=== PATIENT | female | born 1940 | race Caucasian/White ===

== ENCOUNTER 2018-02-06 09:00 | Outpatient (RCR) ==
--- NOTE | 2018-01-23 13:12 | RS.OPPTEV2 ---
Date of Note: 01/22/18 Visit #: 1 Date of Evaluation: 01/22/18 Payer Source: MEDICARE Surgery Performed?: No Treatment Diagnosis: pain in R shld History of Condition/Mechanism of Injury:: pt with no definitive injury. pt states pain began approx 1 month ago. Prior Level of Function.....Patient was independent with: ADL's, Self Care, Work /Vocation, Caregiving, Ambulation/Mobility, Community Integration/Access Functional Limitations: Sleep, Self Care, ADL's, Reaching, Pushing, Pulling, Lifting, Carrying Current Subjective/complaints:: pt states her R shld has been hurting for quite some time, however has been worse for approx 1 month. pt reports she has been having increased difficulty with dock hand. Treatment Side (optional): Right *Precautions: allergic to latex Medical History Medical History: Hypertension, COPD, Arthritis, Emphysema Medical History Comments:: afib, restless leg Surgical History: Cervical Spine, Hysterectomy Surgical History Comments:: cardioversion Smoking Status: Current every day smoker Hx Home Medications: norco, lisinopril, atavan, mirapex Patient's Goals: decrease R shld pain Pain Assessment - Pain Description Pain Location: R shld Pain Description: Sharp, Aching Current Pain Intensity: 5 Worst Pain Intensity: 9 Functional Outcome Measure UE Functional Index: 33 (59%) - G Codes & Severity Modifier G Codes & Modifier: carrying, moving, handling current CK. carrying, moving, handling goal CI Source of G Code score: UE functional index Observation - Observation Inspection: pt with significant upper trap tightness B R worse than L Posture: Forward Head, Rounded Shoulders, Increased Thoracic Kyphosis, Decreased Lumbar Lordosis Handedness: Right Gait - Gait Pattern General Gait Pattern Observation: No Deviations/Normal General Range of Motion: BLE WFL's. LUE WFL's Muscle Strength: BLE 5/5. LUE 4+ to 5/5 Shoulder ROM: Left WFL's Shoulder Muscle Strength: Left WFL's - Right Shoulder ROM Right Shoulder Flexion: 115 (AROM) Right Shoulder Abduction: 100 (AROM) Right Shoulder External Rotation: 35 (AROM) Right Shoulder ROM Limitations: Soft Tissue Tightness, Muscle Weakness, Pain - Right Shoulder Strength Right Shoulder Flexion: 3- Fair- Right Shoulder Extension: 3 Fair Right Shoulder Abduction: 3- Fair- Right Shoulder Adduction: 3 Fair Right Shoulder External Rotation: 3- Fair- Right Shoulder Internal Rotation: 3 Fair - Special Tests Shoulder Empty Can (Supraspinatus) Test: Negative Right Shoulder Mckay-Alexander Impingement Test: Negative Right Palpation Palpation Findings: Tenderness, Muscle Guarding Comments:: pt with tenderness and guarding in area of biceps tendon as well as prox spine of scapula Sensation - Sensation Right Upper Extremity: Intact/Normal Left Upper Extremity: Intact/Normal Right Lower Extremity: Intact/Normal Left Lower Extremity: Intact/Normal Balance - Sitting Balance Static Sitting Balance: Normal Dynamic Sitting Balance: Normal - Standing Balance Static Standing Balance: Normal Dynamic Standing Balance: Normal - Treatment Modality: Ultrasound Parameters/Method Applied: 1.5w/cm2 x 7 mins Treatment Area: R shld Patient Position: Sitting Interventions - Exercise/Activities/Manual Therapy Exercises/Activities: pt performed pendulum ex as well as isometric R shld flex , abd/add, ext and scapular retraction Manual Therapy: n/a HOME EXERCISE PROGRAM: pt given written HEP including pendulum ex, isometric R shld flex, ext, abd, add, scapular retraction, shld shrugs, upper trap stretch - Charges Timed Code Treatment Minutes: 52 Total Treatment Time: 60 Procedures billed for this date of service:: Keek EVALUATION COMPLEXITY LEVEL EVALUATION COMPLEXITY LEVEL: HISTORY: Medium (copd, HTN, age, ), EXAM OF BODY SYSTEMS: Medium (ROM, strength, pain, posture), CLINICAL PRESENTATION: Medium ( evolving), CLINICAL DECISION MAKING: Medium Assessment Assessment: pt presents with decreased strength, ROM with pain R shld. pt with tenderness over biceps tendon, increased pain with ER , abd and flex. pt with some pain relief with pendulum ex. Patient Education: Home Exercise Program, Education of Plan of Care Rehab Potential: Good Short Term Goals Goal #1: pt rate pain < 5 with activity R shld Goal to be met by: 01/30/18 Goal #2: pt with improved R shld ROM flex 125 abd 115 ER 45 Goal to be met by: 01/30/18 Goal #3: Verbalize understanding/compliance of need to decrease heavy activity R shl Goal to be met by: 01/30/18 Goal #4: . Senior Care Goals Goal #1: pt with improved posture, decreased upper trap tightness Goal to be met by: 02/06/18 Goal #2: pt rate pain <3/10 with activity R shld Goal to be met by: 02/06/18 (100%) Goal #3: pt with improved R shld ROM WFL's Goal to be met by: 02/06/18 (30%) Goal #4: Improved strength R shld 4/5 Goal to be met by: 02/06/18 Plan - Treatment to be Provided Procedures: Therapeutic Exercises, Therapeutic Activity, Manual Therapy, Patient Education Modalities: Electrical Stimulation, Ultrasound/Phonophoresis, Cryotherapy, Hot Packs - Treatment Plan Frequency: 2 X week Duration: 3 weeks ORDER # VISITS AND/OR THROUGH DATE: 02/06/18 - Treatment Code (1) Joint stiffness Code(s): M25.60 - STIFFNESS OF UNSPECIFIED JOINT, NOT ELSEWHERE CLASSIFIED (2) Muscle weakness Code(s): M62.81 - MUSCLE WEAKNESS (GENERALIZED) (3) Pain in joint, shoulder region Code(s): M25.519 - PAIN IN UNSPECIFIED SHOULDER Qualifiers: Laterality: right Qualified Code(s): M25.511 - Pain in right shoulder
--- NOTE | 2018-01-23 15:12 | RS.OPPTDN ---
Subjective Date of Note: 01/23/18 Visit #: 2 Date of Evaluation: 01/22/18 Payer Source: MEDICARE Treatment Diagnosis: pain in R shld Current Subjective/complaints:: Patient says she doesn't have much pain to the R shoulder except when she is idle. Reports she performs many outdoor chores and lifts heavy objects, but does not seem to hurt then. *Precautions: allergic to latex - Treatment Modality: Ultrasound Parameters/Method Applied: continuous @ 1.5 w/cm2 x 10 mins along the R upper arm Patient Position: Sitting - Heat/Cryotherapy Treatment: Hot Pack (15 mins to the R shoulder and along the lateral and upper arm in sitting) Interventions - Exercise/Activities/Manual Therapy Exercises/Activities: Patient receives PROM all dir to the R shoulder. Manual isometrics 2x5 for shoulder IR/ER/ABD/ FLEX/EXT, 1# wand for bilateral shoulder flexion at EOB and scap retraction. Patient encouraged to perform HEP and avoid heavy lifting and yard chores while receiving therapy. Total minutes of Exercise: 22 Manual Therapy: n/a HOME EXERCISE PROGRAM: pt given written HEP including pendulum ex, isometric R shld flex, ext, abd, add, scapular retraction, shld shrugs, upper trap stretch - Charges Timed Code Treatment Minutes: 32 Total Treatment Time: 47 Procedures billed for this date of service:: hp, u/s, ex Assessment: Patient presents with low to no pain to the R shoulder, but does increase mildly with ROM. Patient asks to perform ROM quickly because she does not like slow motion due to her hyperactivity. Patient admits being manic currently and is difficult for her to sit and relax for treatment and avoid home chores. Patient Education: Home Exercise Program, Activity Modification, Education of Plan of Care Short Term Goals Goal #1: pt rate pain < 5 with activity R shld Goal to be met by: 01/30/18 Goal #2: pt with improved R shld ROM flex 125 abd 115 ER 45 Goal to be met by: 01/30/18 Goal #3: Verbalize understanding/compliance of need to decrease heavy activity R shl Goal to be met by: 01/30/18 Goal #4: . 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
--- NOTE | 2018-01-26 14:29 | RS.OPPTDN ---
Subjective Date of Note: 01/26/18 Visit #: 3 Date of Evaluation: 01/22/18 Payer Source: MEDICARE Treatment Diagnosis: pain in R shld Current Subjective/complaints:: Patient says she has been up all night nearly. She says she cannot tell a difference in her shoulder pain. Reports it "pops and cracks" all the time. She says she has put a hold on performing heavier tasks at home, but performs normal house chores several times per day. *Precautions: allergic to latex - Treatment Modality: Ultrasound Parameters/Method Applied: continuous @ 1.5 w/cm2 x 12 mins to the R UT and along the R mid deltoid Patient Position: Sitting - Heat/Cryotherapy Treatment: Hot Pack (R shoulder in sitting x 15 mins) Interventions - Exercise/Activities/Manual Therapy Exercises/Activities: Patient receives PROM all dir to the R shoulder. Manual isometrics 2x5 for shoulder IR/ER/ABD/ FLEX/EXT, 4# wand for bilateral shoulder flexion and chest press in supine and EOB. Shoulder shrugs and scap retraction. Tricep curls using ball over her head with 2# arm weight x 10. 3# arm weight for R while on UBE x 2.5 mins forward and 2.5 mins retro. Total minutes of Exercise: 25 Manual Therapy: n/a HOME EXERCISE PROGRAM: pt given written HEP including pendulum ex, isometric R shld flex, ext, abd, add, scapular retraction, shld shrugs, upper trap stretch - Charges Timed Code Treatment Minutes: 37 Total Treatment Time: 52 Procedures billed for this date of service:: hp, u/s, ex2 Assessment: Patient continues to have mod to severe R shoulder pain, limited sleep, but has ROM passively to WNL and actively WFL. Intermittent popping present to both shoulders primarily with overhead flexion. Good resistance with all isometrics today. Patient requests increased weight applied to all exercises due to ease. Patient Education: Body/Joint mechanics, Home Exercise Program, Home Safety Patient demonstrates compliance with HEP?: Yes Short Term Goals Goal #1: pt rate pain < 5 with activity R shld Goal to be met by: 01/30/18 Goal #2: pt with improved R shld ROM flex 125 abd 115 ER 45 Goal to be met by: 01/30/18 Goal #3: Verbalize understanding/compliance of need to decrease heavy activity R shl Goal to be met by: 01/30/18 Goal #4: . Long-Term Goals Goal #1: pt with improved posture, decreased upper trap tightness Goal to be met by: 02/06/18 Goal #2: pt rate pain <3/10 with activity R shld Goal to be met by: 02/06/18 (100%) Goal #3: pt with improved R shld ROM WFL's Goal to be met by: 02/06/18 (30%) Goal #4: Improved strength R shld 4/5 Goal to be met by: 02/06/18 Plan PLAN OF CARE EXPIRES ON:: 02/06/18 ORDER # VISITS AND/OR THROUGH DATE: 02/06/18 PLAN: Patient to continue for modalties and therex to the R UE.
--- NOTE | 2018-01-28 09:38 | RS.CSNOTE ---
PT Case Note Date of Note: 01/28/18 Title of document: Case Note Note: Patient c/o hurting everywhere today. Reports her skin even hurts. Says she almost cancelled her session. As patient sat for ~15 mins on heat for her R shoulder, she began to get very emotional and said she needed to leave. Reports anxiety and increased pain. Assisted patient to her car.
--- NOTE | 2018-01-30 16:33 | RS.OPPTDN ---
Subjective Date of Note: 01/30/18 Visit #: 4 Date of Evaluation: 01/22/18 Payer Source: MEDICARE Treatment Diagnosis: pain in R shld Current Subjective/complaints:: Patient says she feels better today than last session, but still has a lot of pain "everywhere." She says she used her TENS unit and took a [place]. She admits her shoulder feels better when she is performing heavier activity than to rest the arm or body. *Precautions: allergic to latex Pain Assessment - Pain Description Pain Location: "all over" - Treatment Modality: Ultrasound Parameters/Method Applied: continuous @ 1.5 w/cm2 x 10 mins to the R shoulder Patient Position: Sitting - Heat/Cryotherapy Comments:: Patient requests no heat because the weight of the hot pack elevates pain Interventions - Exercise/Activities/Manual Therapy Exercises/Activities: Patient receives PROM all dir to the R shoulder. Manual isometrics 2x5 for shoulder IR/ER/ABD/ FLEX/EXT, 3# wand for bilateral shoulder flexion and chest press in supine and EOB. Shoulder shrugs and scap retraction. Shoulder pulleys for flexion x 3 mins. Total minutes of Exercise: 22 Manual Therapy: n/a HOME EXERCISE PROGRAM: pt given written HEP including pendulum ex, isometric R shld flex, ext, abd, add, scapular retraction, shld shrugs, upper trap stretch - Charges Timed Code Treatment Minutes: 32 Total Treatment Time: 32 Procedures billed for this date of service:: u/s, ex Assessment: Patient continues with elevated pain generally throughout her body she relates to fibromyalgia. She describes pain is present more with food and beverage lead activity and HEP than heavier tasks that she had been doing prior to PT. She demo PROM just a few degrees from normal range all dir and shyann AROM is WFL, but became too anxious to continue on for measurements. No popping is felt within the joint during ROM. Pulleys provided relief of pain and she is able to do so WNL of flexion and able to hold for static stretches. Patient Education: Home Exercise Program, Home Safety, Education of Plan of Care Patient demonstrates compliance with HEP?: Yes Short Term Goals Goal #1: pt rate pain < 5 with activity R shld Goal to be met by: 01/30/18 Progress towards Goal:: No Change Goal #2: pt with improved R shld ROM flex 125 abd 115 ER 45 Goal to be met by: 01/30/18 Progress towards Goal:: Progressing Goal #3: Verbalize understanding/compliance of need to decrease heavy activity R shl Goal to be met by: 01/30/18 Progress towards Goal:: Progressing Goal #4: . Senior Care Goals Goal #1: pt with improved posture, decreased upper trap tightness Goal to be met by: 02/06/18 Goal #2: pt rate pain <3/10 with activity R shld Goal to be met by: 02/06/18 (100%) Goal #3: pt with improved R shld ROM WFL's Goal to be met by: 02/06/18 (30%) Goal #4: Improved strength R shld 4/5 Goal to be met by: 02/06/18 Plan PLAN OF CARE EXPIRES ON:: 02/06/18 ORDER # VISITS AND/OR THROUGH DATE: 02/06/18 PLAN: BIW x 1 more week per order to improve AROM
--- NOTE | 2018-02-03 14:28 | RS.OPPTDN ---
Subjective Date of Note: 02/03/18 Visit #: 5 Date of Evaluation: 01/22/18 Payer Source: MEDICARE Treatment Diagnosis: pain in R shld Current Subjective/complaints:: Patient says her R shoulder pain is only with turning her steering wheel or reaching over her body. Reports her whole body aches and her skin hurts, but the R shoulder does not bother her performing reaching activities or other activities in our department. She indicates her pain had been elevated last night that she only had about an hour sleep so she got up and cleaned her house. States she will see Dr. Aileen Quan February 06. She has to make an appt with Dr. Guerrier after her therapy is complete. *Precautions: allergic to latex Pain Assessment - Pain Description Pain Location: whole body/skin - Treatment Modality: Ultrasound Parameters/Method Applied: continuous @ 1.5 w/cm2 x 10 mins to the R shoulder and upper arm Patient Position: Sitting Interventions - Exercise/Activities/Manual Therapy Exercises/Activities: EX performed in sitting: Patient receives PROM all dir to the R shoulder. Manual isometrics 2x5 for shoulder IR/ER/ABD/ FLEX/EXT, 4# wand for bilateral shoulder flexion and chest press in supine and EOB. Shoulder shrugs and scap retraction. Green tband for scap retraction, 2# dumbell for biceps/triceps curls, wrist flex/ext, punches x 12. 1# shoulder flexion, horizontal add to neutral, shoulder abd x 12. Green tband for bilateral shoulder extension x 12. Shoulder pulleys for flexion x 3 mins. Total minutes of Exercise: 26 Manual Therapy: n/a HOME EXERCISE PROGRAM: pt given written HEP including pendulum ex, isometric R shld flex, ext, abd, add, scapular retraction, shld shrugs, upper trap stretch - Charges Timed Code Treatment Minutes: 26 Total Treatment Time: 36 Procedures billed for this date of service:: u/s, ex2 Assessment: Patient continues with hypersensitivity generally throughout the UE/ LE's with pain that is systemic. However, she admits when this pain is elevated , she is unable to sleep and she gains relief with performing household tasks. Pain is not reproduced with any therex today except when patient actively performs horizontal adduction with resistance. Patient demo full Active motion all dir for the R shoulder and provides 5/5 resistance through each action. Patient Education: Body/Joint mechanics, Home Exercise Program, Activity Modification, Education of Plan of Care Patient demonstrates compliance with HEP?: Yes Short Term Goals Goal #1: pt rate pain < 5 with activity R shld Goal to be met by: 01/30/18 Progress towards Goal:: No Change Goal #2: pt with improved R shld ROM flex 125 abd 115 ER 45 Goal to be met by: 01/30/18 Progress towards Goal:: Met Goal #3: Verbalize understanding/compliance of need to decrease heavy activity R shl Goal to be met by: 01/30/18 Progress towards Goal:: Met Goal #4: . Penitentiary Goals Goal #1: pt with improved posture, decreased upper trap tightness Goal to be met by: 02/06/18 Progress towards goal: Progressing Goal #2: pt rate pain <3/10 with activity R shld Goal to be met by: 02/06/18 (100%) Progress towards goal: No Change Goal #3: pt with improved R shld ROM WFL's Goal to be met by: 02/06/18 Progress towards goal: Met Goal #4: Improved strength R shld 4/5 Goal to be met by: 02/06/18 Progress towards goal: Met Plan PLAN OF CARE EXPIRES ON:: 02/06/18 ORDER # VISITS AND/OR THROUGH DATE: 02/06/18 PLAN: Patient has 1 session remaining
--- NOTE | 2018-02-06 16:49 | RS.OPPTDN ---
Subjective Date of Note: 02/06/18 Visit #: 6 Date of Evaluation: 01/22/18 Payer Source: MEDICARE Treatment Diagnosis: pain in R shld Current Subjective/complaints:: Patient reports her pain is worse since her last session. She says she does not know if it is a particular exercise. Reports that she is shoveling gravel and painting her mailbox post, but still has trouble with reaching across her body and pain is running down the lateral portion of the R upper arm. She is using heat at home and just began Alannah from her Family MD. *Precautions: allergic to latex - Treatment Modality: Ultrasound Parameters/Method Applied: continuous @ 1.5 w/cm2 x 10 mins to the R shoulder Patient Position: Sitting Interventions - Exercise/Activities/Manual Therapy Exercises/Activities: Patient received more conservative exercise today related to patient's c/o increased pain. PROM for the R shoulder all dir. Manual isometrics all dir 2x5, pendulum with 1# dumbell, 2# wand for bilateral shoulder flexion in sitting x 10. Shoulder shrugs/scap adduction for postural awareness, green tband for postural pull backs x 10. Finished with pulleys x 12. Total minutes of Exercise: 25 Manual Therapy: n/a HOME EXERCISE PROGRAM: pt given written HEP including pendulum ex, isometric R shld flex, ext, abd, add, scapular retraction, shld shrugs, upper trap stretch - Charges Timed Code Treatment Minutes: 35 Total Treatment Time: 35 Procedures billed for this date of service:: u/s, ex2 Assessment: Patient presenting with increased R shoulder pain today since her previous appt. We gradually added progressive exercises, but with only a 1# dumbell and short ranges. Patient is performing much more strenuous work at home and maintains ROM actively to WFL and passively WNL today. She provides great resistance throughout all MMT to the R shoulder. 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 She is encouraged to contact her ortho letting him know she has finished and remains with elevated R shoulder pain despite treatment.
--- NOTE | 2018-02-16 16:04 | RS.OPPTDC ---
Date of Discharge: 02/06/18 Date of Evaluation: 01/22/18 Number of Visits: 6 Treatment Diagnosis: pain in R shld Current Level of Function: pt AROM WFL's. Flex R shld 165-170 with therapy wand/ pulleys. Strength for flex/ext, IR/ER 5/5. Current Complaints/Gains: pt reports that her R shld feels worse. pt states that her pain is often "all over" and is not improving with therapy. pt reports she can perform housework when her pain is not bad. Reports continues with decreased sleep but thinks it is due to anxiety. Pain Assessment - Pain Description Pain Location: R shld Current Pain Intensity: >5 Other Comments regarding Pain:: Pain is limiting her functional mobility. Functional Outcome Measure UE Functional Index: 33 (59%) - G Codes & Severity Modifier G Codes & Modifier: carrying, moving, handling objects dc CK. carrying, moving , handling goal CI Source of G Code score: UE functional scale Observation - Observation Posture: Forward Head, Rounded Shoulders Handedness: Right Gait - Gait Pattern General Gait Pattern Observation: No Deviations/Normal General Range of Motion: ROM R shld flex 165-170 Muscle Strength: R shld flex/ext, IR/ER 5/5 Interventions - Exercise/Activities/Manual Therapy Exercises/Activities: n/a Manual Therapy: n/a HOME EXERCISE PROGRAM: pt given written HEP including pendulum ex, isometric R shld flex, ext, abd, add, scapular retraction, shld shrugs, upper trap stretch - Charges Timed Code Treatment Minutes: n/a Total Treatment Time: n/a Procedures billed for this date of service:: n/a Assessment Assessment: pt has shown improvement in ROM, strength R shld. pt continues with pain and does not feel PT has improved pain. Patient Education: Home Exercise Program, Activity Modification, Education of Plan of Care Rehab Potential: Good Short Term Goals Goal #1: pt rate pain < 5 with activity R shld Goal to be met by: 01/30/18 Progress towards Goal:: No Change Goal #2: pt with improved R shld ROM flex 125 abd 115 ER 45 Goal to be met by: 01/30/18 Progress towards Goal:: Met Goal #3: Verbalize understanding/compliance of need to decrease heavy activity R shl Goal to be met by: 01/30/18 Progress towards Goal:: Met Goal #4: . [facility] Goals Goal #1: pt with improved posture, decreased upper trap tightness Goal to be met by: 02/06/18 Progress towards goal: Progressing Goal #2: pt rate pain <3/10 with activity R shld Goal to be met by: 02/06/18 Progress towards goal: No Change Goal #3: pt with improved R shld ROM WFL's Goal to be met by: 02/06/18 Progress towards goal: Met Goal #4: Improved strength R shld 4/5 Goal to be met by: 02/06/18 Progress towards goal: Met Plan Reason for Discharge:: referred back to MD due to worsening pain
== END 2018-02-14 ==
PROVIDERS: ATTEND Orthopaedic Surgery
DX: M25.511 Pain in right shoulder (principal)

== ENCOUNTER 2019-07-14 13:30 | Outpatient (RCR) | payer OTHER ==
--- NOTE | 2019-07-16 10:24 | RS.OTEVAL ---
Subjective Date of Note: 07/14/19 Visit #: 1 Number of visits approved by Insurance: 12 Date of Evaluation: 07/14/19 Payer Source: MEDICARE Date of Onset/Injury/Change in Status: 08/18/14 Surgery Performed?: Yes Date of Procedure: 06/04/19 Treatment Diagnosis: s/p right reverse total shoulder replacement Treatment Side (optional): Right *Precautions: allergic to latex Prior Level of Function.....Patient was independent with: ADL's, Self Care, Work /Vocation, Caregiving, Ambulation/Mobility, Community Integration/Access History of Condition/Mechanism of Injury: Pt reports she was receiving deep shots for pain relief in the right shoulder and then they stopped releaving the pain and the doctor said she was smoking so he was going to stop. Pt had s/p right reverse total shoulder replacement. Level of Function: Pt is driving to therapy. Pt is not wearing a sling at evaluation day which is 6 weaks status post surgery. Pt is able to complete Codman's exercises Independently. Pt completes all ADLS independently. Pt has difficulty donning her pants following toileting. Functional Limitations: Sleep, Self Care, ADL's, Reaching, Pulling, Lifting, Carrying Current Complaints/Gains: Pt has pain in the right shoulder and has a pillow in her axilla area. Pt's pain increases because she cannot sit still and heal that she has to be doing something all of the time. Medical History Medical History: Hypertension, COPD, Arthritis, Emphysema Medical History Comments:: afib, restless leg Surgical History: Cervical Spine, Hysterectomy Surgical History Comments:: cardioversion Smoking Status: Current every day smoker Diagnostic Testing/Imaging:: Patient reports she underwent x-ray yesterday and is unsure of the results. Hx Home Medications: norco, lisinopril, atavan, mirapex Patient's Goals: To be able to use her RUE as she used to without pain. Pain Assessment - Pain Description Pain Description: Sharp Pain Location: Right shoulder pain of 5/10. Pain Description: sharp, aches Current Pain Intensity: 5/10 Worst Pain Intensity: 10/10 Functional Outcome Measures UE Functional Index: 63 - G Codes & Severity Modifier G Codes: . Source of G Code score: . Observation - Observation Posture: Rounded Shoulders Handedness: Right Shoulder ROM: Left WFL's Shoulder Muscle Strength: Left WFL's - Right Shoulder ROM Right Shoulder Flexion: 118 Right Shoulder Extension: 0 Right Shoulder Abduction: 79 Right Shoulder Horizontal Abduction: 20 Right Shoulder Horizontal Adduction: 20 Right Shoulder Internal Rotation: 60 Right Shoulder External Rotation: 27 Right Shoulder ROM Limitations: Muscle Weakness, Pain - Right Shoulder Strength Right Shoulder Flexion: 3- Fair- Right Shoulder Extension: 3- Fair- Right Shoulder Abduction: 3- Fair- Right Shoulder Adduction: 3- Fair- Right Shoulder External Rotation: 3- Fair- Right Shoulder Internal Rotation: 3- Fair- Elbow ROM: Bilaterally WFL's Elbow Muscle Strength: Left WFL's - Right Elbow Strength Right Elbow Extension: 3- Fair- Right Elbow Flexion: 3 Fair Right Forearm Pronation: 3- Fair- Right Forearm Supination: 3- Fair- - Right Wrist/Hand ROM Right Wrist Extension: 60 Right Wrist Flexion: 55 Right Wrist Radial Deviation: 20 Right Wrist Ulnar Deviation: 15 Right Forearm Pronation: 90 Right Forearm Supination: 90 Right Wrist ROM Testing Limitations: Muscle Weakness Right Hand ROM: Full AROM - Right Wrist Strength Right Wrist Extension: 3 Fair Right Wrist Flexion: 3 Fair Right Wrist Radial Deviation: 3 Fair Right Wrist Ulnar Deviation: 3 Fair Right Forearm Pronation: 3 Fair Right Forearm Supination: 3 Fair - Linux Admin Engineer Strength Left Linux Admin Engineer Strength: 41 Right Linux Admin Engineer Strength: 35 Linux Admin Engineer Strength Left Hand Linux Admin Engineer Strength: 41 Right Hand Linux Admin Engineer Strength: 35 Dynamometer Testing Position: 2nd Position Palpation Palpation Findings: Tenderness Sensation Right Upper Extremity: Intact/Normal Left Upper Extremity: Intact/Normal Sensation Description: Within Normal Limits Modalities - Hot Pack/Cryotherapy Treatment: Cryotherapy Interventions - Exercise/Activities Exercise/Activities/Manual Therapy: Codman's exercise: circles both directions for 2-3 minutes each direction (Circles, North to south, east to west). HOME EXERCISE PROGRAM: Printed out Protocal for patient to complete Codman's exercises for 2-3 minutes each, Elbow flexion/extension x 10 reps, wrist/hand and finger motion, rhomboid and trapezius contraction, neck motion. deltoid isometrics with elbow at side, - Other Treatment/Services Treatment Details: Pt reports she does not always abide by the rules. So OT cut off the future home exercises because the patient reported she would do them all. OT to not let RUE shoulder extension occur. - Objective Findings Objective Findings:: WEakness, RUE limited AROM, increased pain. - Charges Timed Code Treatment Minutes: 45 Total Treatment Time: 60 Procedures billed for this date of service:: evaluation medium, EX EVALUATION COMPLEXITY LEVEL: HISTORY: Medium, EXAM OF BODY SYSTEMS: Medium, CLINICAL DECISION MAKING: Medium Assessment Assessment: Pt is emotional and has difficulty staying on tasks. Pt is very motivated and reports she is tired of hurting all of the time. Patient Education: Education of diagnosis, Body/Joint mechanics, Home Exercise Program, Home Safety, Education of Plan of Care Rehab Potential: Good Problems/Comments: Pt may do more than she is supposed to do according to her precautions of her surgery. Short Term Goals Goal #1: Pt to be (I) with her home exercise program and is compliant w/ precautions Goal to be met by: 07/30/19 Goal #2: Pt to increase RUE shoulder flexion to 140 degrees. Goal to be met by: 07/30/19 Goal #3: Pt to increase RUE strength to be 4/5. Goal to be met by: 07/30/19 Goal #4: Pt pain to decrease to 0-2/10. Goal to be met by: 07/30/19 Detention Goals Goal #1: Pt to increase strength of RUE to be 4+/5. Goal to be met by: 08/13/19 Goal #2: Pt to increase RUE AROM to be WFL. Goal to be met by: 08/13/19 Goal #3: Pt to be independent with pulling up her pants after toileting. Goal to be met by: 08/13/19 Goal #4: Pt to have 0-1/10 pain with full AROM of RUE shoulder. Goal to be met by: 08/13/19 Plan - Treatment to be provided Procedures: Therapeutic Exercises, Therapeutic Activity, Neuromuscular Rehab, Manual Therapy, Patient Education Modalities: Electrical Stimulation, Ultrasound/Phonophoresis, Class IV Laser, Cryotherapy, Hot Packs - Treatment Plan Frequency: 3 X week Duration: 6 weeks Dates of Body Presser Goals: 08/13/19 Expiration date of current Insurance Approval:: 08/13/19 - Treatment Code (1) Joint stiffness Code(s): M25.60 - STIFFNESS OF UNSPECIFIED JOINT, NOT ELSEWHERE CLASSIFIED Comments: M25.60 right shoulder joint stiffness. (2) Pain in joint, shoulder region Code(s): M25.519 - PAIN IN UNSPECIFIED SHOULDER Qualifiers: Laterality: right Qualified Code(s): M25.511 - Pain in right shoulder Comments: M25.511 Pain in right shoulder joint (3) Muscle weakness Code(s): M62.81 - MUSCLE WEAKNESS (GENERALIZED) Comments: M62.81 Muscle weakness
== END 2019-07-17 23:59 ==
PROVIDERS: ATTEND Orthopaedic Surgery
DX: Z47.89 Encounter for other orthopedic aftercare (principal)

== ENCOUNTER 2024-02-16 18:07 | Inpatient (IN) ==
[2024-02-16] MEDS: SOLU-MEDROL 125 MG IVP ONE (18:24)
[2024-02-16] MEDS: CARDIZEM INJ IVP STA (18:24)
[2024-02-16 18:29] LABS: BASOPHILS % (AUTO) 0.5 % (0.0-3.0); EOSINOPHILS % (AUTO) 0.5 % (0.0-7.0); HEMATOCRIT 35.8 % (37.0-47.0); HEMOGLOBIN 11.5 g/dl (12.0-16.0); IMMATURE GRANULOCYTE % (AUTO) 0.4 % (0.0-5.0); LYMPHOCYTES # (AUTO) 0.8 K/uL (0.60-3.4); LYMPHOCYTES % (AUTO) 10.8 (10.0-50.0); MEAN CORPUSCULAR HEMOGLOBIN 31.2 pg (27.0-31.0); MEAN CORPUSCULAR HGB CONC 32.1 (31.8-35.4); MONOCYTES # (AUTO) 0.8 K/uL (0.4-2.0); MONOCYTES % (AUTO) 10.3 (0-10); NEUTROPHILS # (AUTO) 5.8 K/ul (2.0-6.9); NEUTROPHILS % (AUTO) 77.5 % (42.2-75.2); PLATELET COUNT 331 10^3/uL (140-440); RDW COEFFICIENT OF VARIATION 14.6 % (11.6-14.8); RED BLOOD COUNT 3.69 10^6/ul (4.20-5.40); WHITE BLOOD COUNT 7.44 K/ul (4.6-10.2)
--- NOTE | 2024-02-16 18:29 | ED.PDOC ---
General ED Provider: Dr. 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 Patient was recently admitted to [facility] for suicidal attempt patient tried to cut her neck using a scalpel during that admission patient was found to have COPD exacerbation/pneumonia treated with antibiotics while admitted stayed at [facility] for 3 days then got transferred to psych unit stayed about 10 days and discharged home with psych medications. 2 days ago patient started feeling short of breath she is not on oxygen at home her condition Deteriorating so she was brought into the emergency room for evaluation. Upon presentation patient is in apparent respiratory distress saturating at 84 on room air heart rate in 150s to 160s. Patient reports low- grade fever yesterday. Time Seen by Provider: 02/16/24 18:13 Primary Care Provider: DEBBIE EDWARDS Nursing and Triage Documentation Reviewed and Agree: Yes What is Opioid Naive?: *Opioid Naive implies the patient is not already taking opioids or not chronically receiving opioids on a daily basis. *PRN dosing is not "usually" associated with tolerance. *Patients are at higher risk of over-sedation and aspiration. What is Opioid Tolerant?: *Opioid Tolerance implies less than the expected response to an opioid. *Acquired tolerance is defined by the patient taking 60mg of oral morphine daily (or equianalgesic dose of another opioid) for 1 week or more. *Often associated with chronic pain. *May take more than usual dose to achieve desired pain control. Review of Systems Review Of Systems Constitutional: Reports Fever and Weakness All Other Systems: Reviewed and Negative [facility] Medical History Cluster B personality disorder Social History Smoking and tobacco status: Current every day smoker Alcohol intake: never Substance use type: does not use Nora/mosque: YAZIDISM Special nora needs: No Agree to transfusion: Yes Adopted: No Caregiver/support person: No Household members: none Housing: house Marital status: W / Lives independently: Yes Number of children: 3 Number of grandchildren: 3 Highest education level completed: GED or equivalent Financial difficulty paying for basics: not very hard service: No Current occupational status: retired Pets and animals: Yes (2 cats) Leisure activites: art and other History of recent travel: No Sexually active: No Do you think of yourself as: straight/heterosexual Current gender identity: female Seatbelt use: always Drives intoxicated or rides with intoxicated starting gate driver: No Water heater temperature set < 120 degrees: Yes Working smoke detector in home: Yes Fire extinguisher in home: Yes Carbon monoxide detector in home: No Firearms in home: No Physical Exam Physical Exam Appearance: Reports Ill-appearing Ill-appearing: Mild Pain Distress: None Eyes: Reports JOSE ROBERTO and EOMI ENT: Reports Ears normal and Nose normal Neck: Supple Respiratory: Reports Breath sounds diminished (Bilateral lungs with mild wheezes) Cardiovascular: Reports No rub, No murmur, Irregular rhythm and Tachycardia GI/: Reports Soft, Nontender and No masses Musculoskeletal: Reports Normal strength and ROM intact Skin: Reports Warm and Normal color Neurological: Reports Sensation intact, Motor intact and Cranial nerves intact Psychiatric: Reports Other (Patient is faking seizures during physical exam) Interpretation EKG Interpretation EKG Interpretation By: ED Physician Time of EKG #1: 18:16 Rate: Tachy Rhythm: Other (A-fib with RVR) Ectopy: None [place]: NL Interpretation: Nonspecific ST changes no signs of acute ischemia Course Course 02/16/24 18:22 02/16/24 18:22 Orders, Labs, Meds: Lab Review 02/16/24 02/16/24 02/16/24 18:22 18:39 18:45 WBC 7.44 RBC 3.69 L Hgb 11.5 L Hct 35.8 L MCV 97.0 MCH 31.2 H MCHC 32.1 RDW Coeff of Magda 14.6 Plt Count 331 Immature Gran % (Auto) 0.4 Neut % (Auto) 77.5 H Lymph % (Auto) 10.8 [place] % (Auto) 10.3 H Eos % (Auto) 0.5 Baso % (Auto) 0.5 Neut # (Auto) 5.8 Lymph # (Auto) 0.8 [place] # (Auto) 0.8 Eos # (Auto) 0.0 Baso # (Auto) 0.0 Immature Gran # (Auto) 0.0 Puncture Site Rbrach Base Excess 1.6 O2 Saturation 96.6 ABG pH 7.52 H* ABG pCO2 30.0 L ABG pO2 77.0 L ABG HCO3 24.5 ABG Total CO2 25.4 H Hemoglobin 1.2 Oxyhemoglobin 94.1 L Carboxyhemoglobin 1.9 H Total Hemoglobin 11.5 L O2 Delivery Device Neb Oxygen Liter Flow 8.00 Sodium 136.2 Potassium 4.11 Chloride 107.4 H Carbon Dioxide 21.1 L Anion Gap 11.81 BUN 16.8 Creatinine 1.04 Estimated GFR (MDRD) 51.00 BUN/Creatinine Ratio 16.15 Glucose 129.7 H Calcium 9.36 Total Bilirubin 0.62 AST 41.4 H ALT 27.6 Alkaline Phosphatase 69.5 Troponin I < 0.012 NT-Pro-B Natriuret Pep 4260 H Total Protein 7.47 Albumin 3.95 Globulin 3.52 Albumin/Globulin Ratio 1.12 Adenovirus (PCR) Pending B. pertussis DNA (PCR) Not detected B.parapertussis DNA PCR Not detected C. pneumoniae DNA (PCR) Not detected Coronavirus OC43 (PCR) Not detected Coronavirus HKU1 (PCR) Not detected Coronavirus 229E (PCR) Not detected Coronavirus NL63 (PCR) Not detected Human Metapneumovir PCR Not detected Influenza B (RT-PCR) Not detected M. pneumoniae (PCR) Not detected Parainfluenza 1 (PCR) Not detected Parainfluenza 2 (PCR) Not detected Parainfluenza 3 (PCR) Not detected Parainfluenza 4 (PCR) Not detected RSV (PCR) Not detected Entero/Rhino (PCR) Not detected SARS-CoV-2 (PCR) Detected H Orders Category Date Time Status ABG DRAW REQUEST Stat CARDIO 02/16/24 18:15 Completed EKG-(ED ONLY) Stat CARDIO 02/16/24 18:13 Completed NEBULIZER TREATMENT Stat CARDIO 02/16/24 18:15 Completed CONTINUOUS PULSE OX (NURSING) PULSEOX CARE 02/16/24 18:13 Active IV ACCESS ONCE CARE 02/16/24 18:13 Active Monitor [ED REGISTERED VASCULAR TECHNOLOGIST (RVT) APPLIED] .ONCE EMERGENCY 02/16/24 18:13 Active ABG COOX Stat LAB 02/16/24 18:39 Completed CBC W/ AUTO DIFF Stat LAB 02/16/24 18:22 Completed CMP [COMPREHENSIVE METABOLIC PANEL] Stat LAB 02/16/24 18:22 Completed NT-PROBNP(ED) Stat LAB 02/16/24 18:22 Completed RESPIRATORY PANEL 2.1 (PCR) Stat LAB 02/16/24 18:45 Results TROPONIN I Stat LAB 02/16/24 18:22 Completed Diltiazem HCl [Cardizem Inj] Meds 02/16/24 18:20 Discontinued 15 mg IVP ONCE STA Diltiazem HCl [Cardizem] 125 mg Meds 02/16/24 19:30 Active 0.9 % Sodium Chloride [Sodium Chloride 100Ml] 100 ml IV TITRATION Ipratropium/Albuterol Neb [Duoneb] Meds 02/16/24 18:13 Discontinued 3 ml NEB ONCE STA Methylprednisolone Sod Succ/Pf [Solu-Medrol 125 mg] Meds 02/16/24 18:13 Discontinued 125 mg IVP ONCE ONE CXR [CHEST, 1V AP ONLY] Stat RADS 02/16/24 18:13 Completed Medications Generic Name Dose Route Start Last Admin Trade Name Freq PRN Reason Stop Dose Admin Diltiazem HCl 125 mg/ Sodium 125 mls @ 5 mls/hr 02/16/24 19:30 02/16/24 19:55 Chloride IV 5 mg/hr TITRATION JULIA 5 mls/hr Administration Protocol 5 MG/HR Discontinued Medications Generic Name Dose Route Start Last Admin Trade Name Freq PRN Reason Stop Dose Admin Albuterol/Ipratropium 3 ml 02/16/24 18:13 02/16/24 18:32 Ipratropium/Albuterol Vial.Neb NEB 02/16/24 18:14 3 ml ONCE STA Administration Diltiazem HCl 15 mg 02/16/24 18:20 02/16/24 18:24 Diltiazem Hcl Inj 25 Mg/5 Ml Vial IVP 02/16/24 18:21 15 mg ONCE STA Administration Methylprednisolone Sodium Succinate 125 mg 02/16/24 18:13 02/16/24 18:24 Methylprednisolone Sod Succ/Pf 125 Mg/2 Ml Vial IVP 02/16/24 18:14 125 mg ONCE ONE Administration Vital Signs: Temp Pulse Resp BP Pulse Ox 02/16/24 18:16 98 F 152 H 21 H 154/109 H 89 L Patient with A-fib with RVR heart rate ranging from 1 40-1 70 give 15 mg of Cardizem improved heart rate to the 90s but started going up again ~120s to 130 patient was started on Cardizem drip she was given Solu-Medrol 125 mg DuoNeb nebulizer treatment placed on 2 L nonrebreather mask satting 95 ABG did not show CO2 retention patient's symptoms likely secondary to COPD exacerbation along with A-fib with RVR. Called hospitalist on-call Yolanda discussed the patient case with her and she agreed to admit the patient under her services Discharge Plan Discharge Patient Disposition: ADMITTED INPATIENT Discharge Problem: COVID-19, A-fib, Acute exacerbation of chronic obstructive pulmonary disease Did you review [place] INTERNATIONAL LOGISTICS COORDINATOR for ALL controlled substances?: Not Applicable ED Provider: GLORY CARO Condition: Stable Physician Progress Note: []
[2024-02-16] MEDS: DUONEB NEB STA (18:32)
--- NOTE | 2024-02-16 18:34 | DI ---
EXAM: CHEST RADIOGRAPH TECHNIQUE: Single frontal chest radiograph. HISTORY: Shortness of breath. COMPARISON: 01/30/2024. FINDINGS: Mild air space disease at the right lung base consistent with pneumonia, improved. Diffuse interstit ial disease bilaterally, unchanged. The heart size is normal. There is calcification in the aorta consistent with atherosclerosis. No pleural effusion or pneumothorax. Right shoulder reverse arthroplasty. IMPRESSION: 1. Improved appearance of the right lung base. 2. No other change from the 01/30/2024 chest radiograph.
[2024-02-16 18:41] LABS: ALANINE AMINOTRANSFERASE 27.6 U/L (0-35); ALBUMIN 3.95 g/dL (3.5-5.0); ALKALINE PHOSPHATASE 69.5 U/L (53-141); ASPARTATE AMINO TRANSFERASE 41.4 U/L (14-36); BILIRUBIN,TOTAL 0.62 mg/dL (0.2-1.3); BLOOD UREA NITROGEN 16.8 mg/dL (7-17); CALCIUM 9.36 mg/dL (8.4-10.2); CARBON DIOXIDE 21.1 mmol/L (22-30.0); CHLORIDE 107.4 mmol/L (98-107); CREATININE 1.04 mg/dL (0.60-1.30); GLUCOSE 129.7 mg/dL (74-106); POTASSIUM 4.11 mmol/L (3.5-5.1); SODIUM 136.2 mmol/L (134.5-145); TOTAL PROTEIN 7.47 g/dL (6.3-8.2)
[2024-02-16 18:43] LABS: ABG O2 HGB 94.1 % (95-100); BEecf 1.6 (-2.0-3.0); COHb 1.9 (0.5-1.5); HCO3 24.5 (21-28); MetHb 1.2 (0-1.5); TCO2 25.4 (19-24); sO2 96.6 % (94-98); tHb 11.5 g/dl (11.7-17.4)
[2024-02-16 18:45] LABS: ABG PH 7.52 (7.35-7.45)
[2024-02-16 18:51] LABS: BORDETELLA PARAPERTUSSIS (PCR) NOT DETECTED (NOT DETECT); BORDETELLA PERTUSSIS (PCR) NOT DETECTED (NOT DETECT); CHLAMYDIA PNEUMONIAE (PCR) NOT DETECTED (NOT DETECT); CORONAVIRUS 229E (PCR) NOT DETECTED (NOT DETECT); CORONAVIRUS HKU1 (PCR) NOT DETECTED (NOT DETECT); CORONAVIRUS NL63 (PCR) NOT DETECTED (NOT DETECT); CORONAVIRUS OC43 (PCR) NOT DETECTED (NOT DETECT); HUMAN METAPNEUMOVIRUS (PCR) NOT DETECTED (NOT DETECT); HUMAN RHINOVIRUS/ENTEROV (PCR) NOT DETECTED (NOT DETECT); INFLUENZA B (PCR) NOT DETECTED (NOT DETECT); MYCOPLASMA PNEUMONIAE (PCR) NOT DETECTED (NOT DETECT); PARAINFLUENZA VIRUS 1 (PCR) NOT DETECTED (NOT DETECT); PARAINFLUENZA VIRUS 2 (PCR) NOT DETECTED (NOT DETECT); PARAINFLUENZA VIRUS 3 (PCR) NOT DETECTED (NOT DETECT); PARAINFLUENZA VIRUS 4 (PCR) NOT DETECTED (NOT DETECT); RESPIRATORY SYNCYTIAL V (PCR) NOT DETECTED (NOT DETECT)
[2024-02-16] MEDS: CARDIZEM 125 MG in SODIUM CHLORIDE 100ML 100 ML IV SCH ×2 (19:55→22:00)
[2024-02-16 19:57] LABS: SARS_COV_2 (PCR) DETECTED (NOT DETECT)
[2024-02-16 20:38] LABS: ADENOVIRUS (PCR) NOT DETECTED (NOT DETECT)
[2024-02-16] MEDS ORDERED: ZOFRAN 4 MG/2 ML IVP PRN (21:27)
[2024-02-16] MEDS: TYLENOL PO PRN (22:32)
[2024-02-16 23:02] VITALS: BMI 29.3
[2024-02-16] MEDS: DUONEB NEB SCH (23:28)
[2024-02-16] MEDS ORDERED: TOPROL XL PO SCH (23:46)
[2024-02-16] MEDS ORDERED: ELIQUIS PO SCH (23:46)
[2024-02-17] MEDS: SINEMET 25-100 PO ONE (00:18)
[2024-02-17] MEDS: DESYREL PO SCH (00:53)
[2024-02-17] MEDS: ELIQUIS PO SCH (00:54)
[2024-02-17] MEDS: ABILIFY PO SCH (00:54)
[2024-02-17] MEDS: TOPROL XL PO SCH (00:54)
[2024-02-17 06:20] LABS: ALBUMIN 3.66 g/dL (3.5-5.0); ASPARTATE AMINO TRANSFERASE 30.6 U/L (14-36); BILIRUBIN,TOTAL 0.44 mg/dL (0.2-1.3); BLOOD UREA NITROGEN 15.8 mg/dL (7-17); CALCIUM 8.74 mg/dL (8.4-10.2); CARBON DIOXIDE 19.5 mmol/L (22-30.0); CHLORIDE 108.5 mmol/L (98-107); CREATININE 0.83 mg/dL (0.60-1.30); GLUCOSE 178.7 mg/dL (74-106); MAGNESIUM 2.25 mg/dL (1.6-2.3); POTASSIUM 3.88 mmol/L (3.5-5.1); SODIUM 138.6 mmol/L (134.5-145); TOTAL PROTEIN 6.93 g/dL (6.3-8.2)
[2024-02-17 06:27] LABS: ALANINE AMINOTRANSFERASE 24.8 U/L (0-35)
[2024-02-17 06:50] LABS: THYROID STIMULATING HORMONE 0.59 uIU/L (0.465-4.68)
[2024-02-17 07:04] LABS: BASOPHILS % (AUTO) 0.3 % (0.0-3.0); HEMATOCRIT 33.6 % (37.0-47.0); HEMOGLOBIN 10.7 g/dl (12.0-16.0); IMMATURE GRANULOCYTE % (AUTO) 0.2 % (0.0-5.0); LYMPHOCYTES # (AUTO) 0.6 K/uL (0.60-3.4); LYMPHOCYTES % (AUTO) 10.1 (10.0-50.0); MEAN CORPUSCULAR HEMOGLOBIN 31.9 pg (27.0-31.0); MEAN CORPUSCULAR HGB CONC 31.8 (31.8-35.4); MEAN CORPUSCULAR VOLUME 100.3 fl (81.0-99.0); MONOCYTES # (AUTO) 0.1 K/uL (0.4-2.0); MONOCYTES % (AUTO) 2.3 (0-10); NEUTROPHILS % (AUTO) 87.1 % (42.2-75.2); PLATELET COUNT 287 10^3/uL (140-440); RDW COEFFICIENT OF VARIATION 14.3 % (11.6-14.8); RED BLOOD COUNT 3.35 10^6/ul (4.20-5.40); WHITE BLOOD COUNT 5.76 K/ul (4.6-10.2)
[2024-02-17] MEDS: CARBIDOPA LEVODOPA PO SCH (07:55)
[2024-02-17] MEDS: DECADRON PO SCH (08:58)
[2024-02-17] MEDS: CARDIZEM PO STA (08:59)
[2024-02-17] MEDS ORDERED: ELIQUIS PO SCH (09:00)
[2024-02-17] MEDS ORDERED: TOPROL XL PO SCH (09:00)
[2024-02-17 11:04] LABS: PROTHROMBIN TIME 10.9 SEC (9.3-11.0)
[2024-02-17] MEDS: VEKLURY 200 MG in SODIUM CHLORIDE 250 ML IV ONE (11:18)
--- NOTE | 2024-02-17 12:35 | PCM ---
Date of Service Date Seen by Provider: 02/17/24 Time Seen by Provider: 09:00 Admit Day/Time Admission Date: 02/16/24 Admission Time: 20:36 Reason for Admission Chief Complaint: AFIB/RVR,COPD EXACERBATION Hospital Provider Hospital Provider: Jarrod Grayson Pa-C, [facility] Primary Care Physician Primary Care Physician: DEBBIE EDWARDS History of Present Illness History of Present Illness: Patient is an 83 year old female with pmhx of COPD, a fib, pscyhogenic nonepileptic seizure, ERIC, severe manic bipolar 1 disorder, psychotic behavior, who presented to ER with SOB. Patient had a 10 day hospitalization at [facility] late January. She was admitted with suicidal attempt, COPD and pneumonia. Once medically stable she was admitted to their [facility]. She was discharged home 02/12, doing well per daughter. Then on 02/13 started having sob and cough. Does not wear O2 at home. Has not been taking medications appropriately. In ER she tested positive for covid. CXR negative. HR was 150s-170 in a fib. She was given cardizem IVP which brought her down to 120s, was then on cardizem drip. Pt admitted to [facility]. Pt remained on cardizem drip overnight. Transitioning off of it this morning. She's feeling better today. States she was only taking her diltiazem bid instead of QID. Denies SI/HI. Daughter at bedside. Pt lives alone but daughter checks on her. Case Discussed With Case Discussed With: Patient's case was discussed with the ER Physicians, Dr. Babin. 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 Special nora needs: No Agree to transfusion: Yes Adopted: No Caregiver/support person: No Household members: none Housing: house Marital status: W / Lives independently: Yes Number of children: 3 Number of grandchildren: 3 Highest education level completed: GED or equivalent Financial difficulty paying for basics: not very hard service: No Current occupational status: retired Pets and animals: Yes (2 cats) Leisure activites: art and other History of recent travel: No Sexually active: No Do you think of yourself as: straight/heterosexual Current gender identity: female Seatbelt use: always Drives intoxicated or rides with intoxicated drivers' cash clerk: No Water heater temperature set < 120 degrees: Yes Working smoke detector in home: Yes Fire extinguisher in home: Yes Carbon monoxide detector in home: No Firearms in home: No Allergies Allergies Allergy/AdvReac Type Severity Reaction Status Date / Time No Known Allergies Allergy Verified 02/16/24 18:24 Current Medications Home Medications metoprolol succinate 25 mg tablet,extended release 24 hr 25 mg PO BID 09/04/22 [History Confirmed 02/16/24 Last Taken Unknown] rivaroxaban 20 mg tablet (Xarelto) 20 mg PO QDAY 09/04/22 [History Confirmed 02/16/24 Last Taken Unknown] apixaban 5 mg tablet (Eliquis) 5 mg PO BID anticoagulation 02/16/24 [History Confirmed 02/16/24 Last Taken Unknown] aripiprazole 5 mg tablet 5 mg PO BEDTIME 02/16/24 [History Confirmed 02/16/24 Last Taken Unknown] carbidopa 10 mg-levodopa 100 mg tablet 1 tab PO BEDTIME 02/16/24 [History Confirmed 02/16/24 Last Taken Unknown] diltiazem HCl 60 mg tablet 60 mg PO QID 02/16/24 [History Confirmed 02/16/24 Last Taken Unknown] furosemide 20 mg tablet 20 mg PO BID 02/16/24 [History Confirmed 02/16/24 Last Taken Unknown] methocarbamol 750 mg tablet 750 mg PO DAILY PRN muscle spasms 02/16/24 [History Confirmed 02/16/24 Last Taken Unknown] potassium chloride 20 mEq tablet,extended release(part/cryst) 20 meq PO DAILY 02/16/24 [History Confirmed 02/16/24 Last Taken Unknown] trazodone 50 mg tablet 50 mg PO BEDTIME 02/16/24 [History Confirmed 02/16/24 Last Taken Unknown] aripiprazole 5 mg tablet (Abilify) 5 mg PO BEDTIME 02/17/24 [History Confirmed 02/17/24 Last Taken Unknown] Home Acetaminophen (Acetaminophen 325 Mg Tablet) 650 mg PO Q4H PRN PRN Reason: Mild Pain Last Admin: 02/16/24 22:32 Dose: 650 mg Albuterol/Ipratropium (Ipratropium/Albuterol Vial.Neb) 3 ml NEB RTQ6H [facility] Last Admin: 02/17/24 11:05 Dose: 3 ml Apixaban (Apixaban 5 Mg Tab) 5 mg PO BID [facility] Last Admin: 02/17/24 08:59 Dose: 5 mg Aripiprazole (Aripiprazole 5 Mg Tablet) 5 mg PO BEDTIME [facility] Last Admin: 02/17/24 00:54 Dose: 5 mg Dexamethasone (Dexamethasone 2 Mg Tablet) 6 mg PO DAILYWM2 [facility] Last Admin: 02/17/24 08:58 Dose: 6 mg Diltiazem HCl (Diltiazem Hcl 60 Mg Tablet) 60 mg PO Q6HR [facility] Remdesivir 100 mg/ Sodium (Chloride) 100 mls @ 200 mls/hr IV DAILY [facility] Stop: 02/21/24 09:29 Metoprolol Succinate (Metoprolol Succinate 25 Mg Tab.Er.24h) 25 mg PO BID [facility] Last Admin: 02/17/24 08:59 Dose: 25 mg Non-Formulary Medication (Carbidopa-Levodopa) 1 tab PO BEDTIME [facility] Last Admin: 02/17/24 07:55 Dose: Not Given Ondansetron HCl (Ondansetron Hcl/Pf 4 Mg/2 Ml Sdv) 4 mg IVP Q6H PRN PRN Reason: Nausea / Vomiting Trazodone HCl (Trazodone Hcl 50 Mg Tablet) 50 mg PO BEDTIME [facility] Last Admin: 02/17/24 00:53 Dose: 50 mg Discontinued Medications Albuterol/Ipratropium (Ipratropium/Albuterol Vial.Neb) 3 ml NEB ONCE STA Stop: 02/16/24 18:14 Last Admin: 02/16/24 18:32 Dose: 3 ml Apixaban (Apixaban 5 Mg Tab) 5 mg PO BID [facility] Apixaban (Apixaban 5 Mg Tab) 5 mg PO BID [facility] Carbidopa/Levodopa (Carbidopa/Levodopa 25/100 Tablet) 1 tab PO ONCE ONE Stop: 02/16/24 23:40 Last Admin: 02/17/24 00:18 Dose: 1 tab Diltiazem HCl (Diltiazem Hcl Inj 25 Mg/5 Ml Vial) 15 mg IVP ONCE STA Stop: 02/16/24 18:21 Last Admin: 02/16/24 18:24 Dose: 15 mg Diltiazem HCl (Diltiazem Hcl 60 Mg Tablet) 60 mg PO ONCE STA Stop: 02/17/24 08:36 Last Admin: 02/17/24 08:59 Dose: 60 mg Diltiazem HCl 125 mg/ Sodium (Chloride) 125 mls @ 5 mls/hr IV TITRATION [facility]ULIA; Protocol Last Titration: 02/16/24 20:55 Dose: Infused Diltiazem HCl 125 mg/ Sodium (Chloride) 125 mls @ 5 mls/hr IV TITRATION [facility]; Protocol Last Titration: 02/17/24 10:06 Dose: Infused Remdesivir 200 mg/ Sodium (Chloride) 250 mls @ 250 mls/hr IV ONCE ONE Stop: 02/17/24 11:40 Last Admin: 02/17/24 11:18 Dose: 250 mls/hr Methylprednisolone Sodium Succinate (Methylprednisolone Sod Succ/Pf 125 Mg/2 Ml Vial) 125 mg IVP ONCE ONE Stop: 02/16/24 18:14 Last Admin: 02/16/24 18:24 Dose: 125 mg Metoprolol Succinate (Metoprolol Succinate 25 Mg Tab.Er.24h) 25 mg PO BID [facility] Metoprolol Succinate (Metoprolol Succinate 25 Mg Tab.Er.24h) 25 mg PO BID [facility] Trazodone HCl (Trazodone Hcl 50 Mg Tablet) 50 mg PO BEDTIME [facility] Opioid Naive vs. Tolerant Does Patient Take Opioids?: No Is Patient Opioid Naive?: Yes What is Opioid Naive?: *Opioid Naive implies the patient is not already taking opioids or not chronically receiving opioids on a daily basis. *PRN dosing is not "usually" associated with tolerance. *Patients are at higher risk of over-sedation and aspiration. Is Patient Opioid Tolerant?: No What is Opioid Tolerant?: *Opioid Tolerance implies less than the expected response to an opioid. *Acquired tolerance is defined by the patient taking 60mg of oral morphine daily (or equianalgesic dose of another opioid) for 1 week or more. *Often associated with chronic pain. *May take more than usual dose to achieve desired pain control. Review of Systems Constitutional: Reports Fever, Weakness and Loss of appetite; Denies Fatigue Head: Reports Normocephalic and Atraumatic Throat: Denies Sore Throat or Difficulty Swallowing Cardiovascular: Reports Palpitations; Denies Chest pain or Edema Respiratory: Reports Cough and Shortness of air Gastrointestinal: Denies Nausea, Vomiting, Diarrhea, Abdominal pain or Melena Genitourinary: Denies Dysuria or Frequency Dermatologic: Denies Rashes Psychiatric: Reports Depression and Anxiety; Denies Suicidal Physical examination Most Recent Vital Signs: Most Recent Vital Signs Temperature 97.4 F L 02/17/24 10:00 Temperature Source Oral 02/17/24 05:59 Temperature Source Infrared 02/16/24 18:16 Pulse Rate 88 02/17/24 10:00 Respiratory Rate 20 02/17/24 10:00 Blood Pressure 109/67 02/17/24 10:00 Blood Pressure Mean 81 02/17/24 10:00 Blood Pressure Left Arm 124/72 02/16/24 22:19 Blood Pressure Location Left Arm 02/17/24 10:00 Blood Pressure Position Sitting 02/17/24 10:00 O2 Sat by Pulse Oximetry 95 02/17/24 10:00 Oxygen Delivery Method Nasal Cannula 02/17/24 12:00 Oxygen Flow Rate 2 02/17/24 10:00 Height 5 ft 3 in 02/16/24 22:19 Weight 165 lb 12.8 oz 02/16/24 22:19 Telemetry Type Bedside Monitor 02/17/24 07:00 Telemetry Monitoring Continues 02/17/24 07:00 Irregular Telemetry Rate (Approximate) 80-90 BPM 02/17/24 07:00 Telemetry Heart Rate 93 02/17/24 07:00 Telemetry SPO2 93 02/17/24 01:00 EKG QRS Interval 0.08 02/17/24 07:00 Telemetry Strip Reading AFIB 02/17/24 07:00 Pulse Oximetry Type Bedside Monitor 02/17/24 07:00 Pulse Oximetry Monitoring Continues 02/17/24 07:00 Appearance: Positive Well-appearing, Well-nourished, No Apparent Distress and Alert and Oriented x3 Skin: Positive [place], Warm, Good Turgor, Good Color and Other (+scab from recent laceration to left side of neck ); Negative Rashes HEENT: Positive Normocephalic and Atraumatic Neck: Positive Supple and Midline Trachea Chest/Lungs: Positive Clear to Auscultation Bilaterally; Negative Rales, Rhonci or Wheezes Heart: Positive Irregular Rhythm and Tachycardia GI/: Positive Soft, Nontender, Bowel Sounds Normal and No Distention Extremities: Negative Edema Neurological: Positive Cranial Nerves Intact, Alert, Oriented and Other (+gen eralized weakness ) Psychiatric: Positive Oriented x4, Appropriate Mood and Appropriate Affect Labs This Visit Labs This Visit: Labs This Visit 02/16/24 02/16/24 02/16/24 18:22 18:39 18:45 WBC 7.44 RBC 3.69 L Hgb 11.5 L Hct 35.8 L MCV 97.0 MCH 31.2 H MCHC 32.1 RDW Coeff of Magda 14.6 Plt Count 331 Immature Gran % (Auto) 0.4 Neut % (Auto) 77.5 H Lymph % (Auto) 10.8 [place] % (Auto) 10.3 H Eos % (Auto) 0.5 Baso % (Auto) 0.5 Neut # (Auto) 5.8 Lymph # (Auto) 0.8 [place] # (Auto) 0.8 Eos # (Auto) 0.0 Baso # (Auto) 0.0 Immature Gran # (Auto) 0.0 PT INR Puncture Site Rbrach Base Excess 1.6 O2 Saturation 96.6 ABG pH 7.52 H* ABG pCO2 30.0 L ABG pO2 77.0 L ABG HCO3 24.5 ABG Total CO2 25.4 H Hemoglobin 1.2 Oxyhemoglobin 94.1 L Carboxyhemoglobin 1.9 H Total Hemoglobin 11.5 L O2 Delivery Device Neb Oxygen Liter Flow 8.00 Sodium 136.2 Potassium 4.11 Chloride 107.4 H Carbon Dioxide 21.1 L Anion Gap 11.81 BUN 16.8 Creatinine 1.04 Estimated GFR (MDRD) 51.00 BUN/Creatinine Ratio 16.15 Glucose 129.7 H Calcium 9.36 Magnesium Total Bilirubin 0.62 AST 41.4 H ALT 27.6 Alkaline Phosphatase 69.5 Troponin I < 0.012 NT-Pro-B Natriuret Pep 4260 H Total Protein 7.47 Albumin 3.95 Globulin 3.52 Albumin/Globulin Ratio 1.12 TSH Adenovirus (PCR) Not detected B. pertussis DNA (PCR) Not detected B.parapertussis DNA PCR Not detected C. pneumoniae DNA (PCR) Not detected Coronavirus OC43 (PCR) Not detected Coronavirus HKU1 (PCR) Not detected Coronavirus 229E (PCR) Not detected Coronavirus NL63 (PCR) Not detected Human Metapneumovir PCR Not detected Influenza B (RT-PCR) Not detected M. pneumoniae (PCR) Not detected Parainfluenza 1 (PCR) Not detected Parainfluenza 2 (PCR) Not detected Parainfluenza 3 (PCR) Not detected Parainfluenza 4 (PCR) Not detected RSV (PCR) Not detected Entero/Rhino (PCR) Not detected SARS-CoV-2 (PCR) Detected H 02/17/24 05:38 WBC 5.76 RBC 3.35 L Hgb 10.7 L Hct 33.6 L MCV 100.3 H MCH 31.9 H MCHC 31.8 RDW Coeff of Magda 14.3 Plt Count 287 Immature Gran % (Auto) 0.2 Neut % (Auto) 87.1 H Lymph % (Auto) 10.1 [place] % (Auto) 2.3 Eos % (Auto) 0.0 Baso % (Auto) 0.3 Neut # (Auto) 5.0 Lymph # (Auto) 0.6 [place] # (Auto) 0.1 L Eos # (Auto) 0.0 Baso # (Auto) 0.0 Immature Gran # (Auto) 0.0 PT 10.9 INR 1.05 Puncture Site Base Excess O2 Saturation ABG pH ABG pCO2 ABG pO2 ABG HCO3 ABG Total CO2 Hemoglobin Oxyhemoglobin Carboxyhemoglobin Total Hemoglobin O2 Delivery Device Oxygen Liter Flow Sodium 138.6 Potassium 3.88 Chloride 108.5 H Carbon Dioxide 19.5 L Anion Gap 14.48 BUN 15.8 Creatinine 0.83 Estimated GFR (MDRD) 66.00 BUN/Creatinine Ratio 19.03 Glucose 178.7 H Calcium 8.74 Magnesium 2.25 Total Bilirubin 0.44 AST 30.6 ALT 24.8 Alkaline Phosphatase 52.0 L Troponin I NT-Pro-B Natriuret Pep Total Protein 6.93 Albumin 3.66 Globulin 3.27 Albumin/Globulin Ratio 1.11 TSH 0.590 Adenovirus (PCR) B. pertussis DNA (PCR) B.parapertussis DNA PCR C. pneumoniae DNA (PCR) Coronavirus OC43 (PCR) Coronavirus HKU1 (PCR) Coronavirus 229E (PCR) Coronavirus NL63 (PCR) Human Metapneumovir PCR Influenza B (RT-PCR) M. pneumoniae (PCR) Parainfluenza 1 (PCR) Parainfluenza 2 (PCR) Parainfluenza 3 (PCR) Parainfluenza 4 (PCR) RSV (PCR) Entero/Rhino (PCR) SARS-CoV-2 (PCR) Imaging Imaging: EXAM: CHEST RADIOGRAPH TECHNIQUE: Single frontal chest radiograph. HISTORY: Shortness of breath. COMPARISON: 01/30/2024. FINDINGS: Mild air space disease at the right lung base consistent with pneumonia, improved. Diffuse interstitial disease bilaterally, unchanged. The heart size is normal. There is calcification in the aorta consistent with atherosclerosis. No pleural effusion or pneumothorax. Right shoulder reverse arthroplasty. IMPRESSION: 1. Improved appearance of the right lung base. 2. No other change from the 01/30/2024 chest radiograph. Review Statement Review Statement: I have independently reviewed and interpreted the labs/EKGs/imaging that were ordered by the ER provider. I have reviewed all outside records that are available currently in our EMR including imaging/notes/labs from previous visits. Plan Plan: 1. A fib rvr - Improved. Transitioned off of cardizem drip. Continue diltiazem q6hrs, will transition to ER tab tomorrow. Likely will be more compliant. Cont metoprolol and eliquis. 2. Acute hypoxic respiratory failure in setting of covid 19 - Decadron 6 mg daily, remdesivir, O2, wean when able. 3. Covid 19 - Pt would like to proceed with remdesivir. 4. Mood disorder - Cont home meds DVT Prophylaxis: Eliquis Time Spent: Greater than 80 minutes spent with patient, 50% of the time spent with this patient was devoted to counseling and coordination of care. [facility] minutes spent discussing advance care planning. DNR Admit to: Obs, made inpatient today Discussed Plan of Care with Dr. Erika Obrien. Medications Medication Orders: Medications Ordered Category Date Time Status Acetaminophen [Tylenol] Meds 02/16/24 21:27 Active 650 mg PO Q4H PRN Apixaban [Eliquis] Meds 02/17/24 00:25 Active 5 mg PO BID Aripiprazole [Abilify] Meds 02/17/24 00:30 Active 5 mg PO BEDTIME Dexamethasone [Decadron] Meds 02/17/24 07:30 Active 6 mg PO DAILYWM2 Diltiazem HCl [Cardizem] Meds 02/17/24 14:30 Ordered 60 mg PO Q6HR Ipratropium/Albuterol Neb [Duoneb] Meds 02/17/24 00:00 Active 3 ml NEB RTQ6H Metoprolol Succinate [Toprol Xl] Meds 02/17/24 00:25 Active 25 mg PO BID Ondansetron HCl/Pf [Zofran 4 mg/2 ml] Meds 02/16/24 21:27 Active 4 mg IVP Q6H PRN Remdesivir [Veklury] 100 mg Meds 02/18/24 09:00 Ordered 0.9 % Sodium Chloride [Sodium Chloride 100Ml] 100 ml IV DAILY Trazodone HCl [Desyrel] Meds 02/17/24 00:25 Active 50 mg PO BEDTIME carbidopa-levodopa Meds 02/16/24 23:30 Active 1 tab PO BEDTIME
[2024-02-17] MEDS: CARDIZEM PO SCH (15:45)
[2024-02-17] MEDS ORDERED: DESYREL PO SCH (21:00)
[2024-02-18] MEDS: CARDIZEM CD PO SCH (05:18)
[2024-02-18 05:35] LABS: BASOPHILS % (AUTO) 0.1 % (0.0-3.0); HEMATOCRIT 32.5 % (37.0-47.0); HEMOGLOBIN 10.4 g/dl (12.0-16.0); IMMATURE GRANULOCYTE # (AUTO) 0.1 (0.0-1.0); IMMATURE GRANULOCYTE % (AUTO) 0.5 % (0.0-5.0); LYMPHOCYTES # (AUTO) 0.9 K/uL (0.60-3.4); LYMPHOCYTES % (AUTO) 9.6 (10.0-50.0); MEAN CORPUSCULAR HEMOGLOBIN 30.7 pg (27.0-31.0); MEAN CORPUSCULAR VOLUME 95.9 fl (81.0-99.0); MONOCYTES % (AUTO) 10.3 (0-10); NEUTROPHILS # (AUTO) 7.8 K/ul (2.0-6.9); NEUTROPHILS % (AUTO) 79.5 % (42.2-75.2); PLATELET COUNT 322 10^3/uL (140-440); RDW COEFFICIENT OF VARIATION 14.6 % (11.6-14.8); RED BLOOD COUNT 3.39 10^6/ul (4.20-5.40); WHITE BLOOD COUNT 9.76 K/ul (4.6-10.2)
[2024-02-18 05:51] LABS: ALANINE AMINOTRANSFERASE 17.4 U/L (0-35); ALBUMIN 3.81 g/dL (3.5-5.0); ALKALINE PHOSPHATASE 54.7 U/L (53-141); ASPARTATE AMINO TRANSFERASE 26.4 U/L (14-36); BILIRUBIN,TOTAL 0.43 mg/dL (0.2-1.3); BLOOD UREA NITROGEN 23.4 mg/dL (7-17); CALCIUM 9.08 mg/dL (8.4-10.2); CARBON DIOXIDE 21.6 mmol/L (22-30.0); CHLORIDE 107.6 mmol/L (98-107); CREATININE 0.82 mg/dL (0.60-1.30); GLUCOSE 110.4 mg/dL (74-106); MAGNESIUM 2.31 mg/dL (1.6-2.3); POTASSIUM 4.15 mmol/L (3.5-5.1); SODIUM 135.4 mmol/L (134.5-145); TOTAL PROTEIN 7.22 g/dL (6.3-8.2)
[2024-02-18 05:52] LABS: PROTHROMBIN TIME 11.1 SEC (9.3-11.0)
[2024-02-18 05:55] VITALS: TEMP 97.2
[2024-02-18] MEDS: VEKLURY 100 MG in SODIUM CHLORIDE 100ML 100 ML IV SCH (09:04)
[2024-02-18 10:01] VITALS: BP 133/79; PULSE 90; RESP 14
--- NOTE | 2024-02-18 10:55 | DCSUM ---
Admission Date Admission Date: 02/16/24 Discharge Date Discharge Date: 02/18/24 Admission Diagnosis Admission Diagnosis: 1. A fib rvr 2. Acute hypoxic respiratory failure in setting of covid 19 3. Covid 19 Discharge Diagnosis Discharge Diagnosis: 1. A fib rvr - resolved 2. Acute hypoxic respiratory failure in setting of covid 19 - resolved 3. Covid 19 4. Mood disorder - Cont home [facility] Provider Hospital Provider: Jarrod Grayson PA-C, [facility] Primary Care Physician Primary Care Physician: DEBBIE EDWARDS Summary of History and Physical Summary of History and Physical: Patient is an 83 year old female with pmhx of COPD, a fib, pscyhogenic nonepileptic seizure, ERIC, severe manic bipolar 1 disorder, psychotic behavior, who presented to ER with SOB. Patient had a 10 day hospitalization at [facility] late January. She was admitted with suicidal attempt, COPD and pneumonia. Once medically stable she was admitted to their [facility]. She was discharged home 02/12, doing well per daughter. Then on 02/13 started having sob and cough. Does not wear O2 at home. Has not been taking medications appr opriately. In ER she tested positive for covid. CXR negative. HR was 150s-170 in a fib. She was given cardizem IVP which brought her down to 120s, was then on cardizem drip. Pt admitted to [facility]. Pt remained on cardizem drip overnight. Transitioning off of it this morning. She's feeling better today. States she was only taking her diltiazem bid instead of QID. Denies SI/HI. Daughter at bedside. Pt lives alone but daughter checks on her. Hospital Course Subjective: Patient was on cardizem drip first night of admission, transitioned to PO cardizem q6hrs as she was originally prescribed. HR well controlled, BP tolerated well. Transitioned to cardizem 240 mg extended release, hopefully she will have better compliance with this. Encouraged med compliance. She was also on remdesivir and decadron due to hypoxia. She was weaned to RA and did not qualify for home O2. She will be discharged on remainder of decadron for total of 10 day treatment. She requests a "long acting inhaler" for her COPD, states she was given samples in the past for different ones. Spiriva prescribed. F/u with PCP, pt has apt on 02/22. Appearance: Pleasant, No Apparent Distress and Alert HEENT: MMM CVS: No Murmur and Other (+irregularly irregular, rate controlled ) Abdomen: Soft, Non-Tender and No Distention Respiratory: No Accessory Muscle Use Extremities: No Edema Vital Signs: Most Recent Vital Signs Temperature 97.2 F L 02/18/24 05:54 Temperature Source Oral 02/18/24 05:54 Temperature Source Infrared 02/16/24 18:16 Pulse Rate 90 02/18/24 10:00 Respiratory Rate 14 02/18/24 10:00 Blood Pressure 133/79 02/18/24 10:00 Blood Pressure Mean 97 02/18/24 10:00 Blood Pressure Left Arm 124/72 02/16/24 22:19 Blood Pressure Location Left Arm 02/18/24 10:00 Blood Pressure Position Sitting 02/18/24 10:00 O2 Sat by Pulse Oximetry 97 02/18/24 10:00 Oxygen Delivery Method Room Air 02/18/24 10:00 Oxygen Flow Rate 2 02/18/24 01:00 Height 5 ft 3 in 02/16/24 22:19 Weight 165 lb 12.8 oz 02/16/24 22:19 Telemetry Type Remote Telemetry 02/18/24 07:00 Telemetry Monitoring Continues 02/18/24 07:00 Irregular Telemetry Rate (Approximate) 80-90 BPM 02/17/24 12:49 Telemetry Heart Rate 89 02/18/24 07:00 Telemetry SPO2 98 02/18/24 07:00 EKG QRS Interval 0.08 02/18/24 07:00 Telemetry Strip Reading Afib 02/18/24 07:00 Pulse Oximetry Type Bedside Monitor 02/18/24 07:00 Pulse Oximetry Monitoring Continues 02/18/24 07:00 Imaging: EXAM: CHEST RADIOGRAPH TECHNIQUE: Single frontal chest radiograph. HISTORY: Shortness of breath. COMPARISON: 01/30/2024. FINDINGS: Mild air space disease at the right lung base consistent with pneumonia, improved. Diffuse interstitial disease bilaterally, unchanged. The heart size is normal. There is calcification in the aorta consistent with atherosclerosis. No pleural effusion or pneumothorax. Right shoulder reverse arthroplasty. IMPRESSION: 1. Improved appearance of the right lung base. 2. No other change from the 01/30/2024 chest radiograph. Lab Results Last 24 Hours: 02/18/24 02/17/24 05:17 05:38 WBC 9.76 RBC 3.39 L Hgb 10.4 L Hct 32.5 L MCV 95.9 MCH 30.7 MCHC 32.0 RDW Coeff of Magda 14.6 Plt Count 322 Immature Gran % (Auto) 0.5 Neut % (Auto) 79.5 H Lymph % (Auto) 9.6 L [place] % (Auto) 10.3 H Eos % (Auto) 0.0 Baso % (Auto) 0.1 Neut # (Auto) 7.8 H Lymph # (Auto) 0.9 [place] # (Auto) 1.0 Eos # (Auto) 0.0 Baso # (Auto) 0.0 Immature Gran # (Auto) 0.1 PT 11.1 H 10.9 INR 1.07 1.05 Sodium 135.4 Potassium 4.15 Chloride 107.6 H Carbon Dioxide 21.6 L Anion Gap 10.35 BUN 23.4 H Creatinine 0.82 Estimated GFR (MDRD) 67.00 BUN/Creatinine Ratio 28.53 Glucose 110.4 H D Calcium 9.08 Magnesium 2.31 H Total Bilirubin 0.43 AST 26.4 ALT 17.4 Alkaline Phosphatase 54.7 Total Protein 7.22 Albumin 3.81 Globulin 3.41 Albumin/Globulin Ratio 1.11 Discharge Instructions Discharge Planning: Discharge Planning > [address] Erika Obrien. Discharge Medications: Medications at Discharge (Home Meds & RX) Discharge Plan Discharge Discharge Orders: Discharge Patient (ONCE); Ordered 02/18/24 Ordered By: JARROD GRAYSON Activity Restrictions/Additional Instructions: DISCHARGE TO HOME DX: Rosa ROOT FIB RVR F/U WITH PCP AND CARDIOLOGY DIET: HEART HEALTHY ACTIVITY: TOLERATED PHARMACY: [facility] CHANGED YOUR CARDIZEM TO A ONCE DAILY EXTENDED RELEASE Care Plan Goals: Problem: Cardiac Dysrhythmia Goal: Adequate cardiac output Instructions: Apply oxygen as ordered Medication as ordered Monitor for any changes in rhythm Notify MD of any changes Patient Disposition: HOME SELF-CARE Prescriptions: New diltiazem HCl 240 mg capsule,extended release 24hr 240 mg PO DAILY Qty: 30 0RF dexamethasone 6 mg tablet 6 mg PO DAILY Qty: 8 0RF Rx Instructions: START 4/4/24 Spiriva Respimat 2.5 mcg/actuation mist 2 puff inhalation DAILY Qty: 4 0RF Continued trazodone 50 mg tablet 50 mg PO BEDTIME Patient Comments: TAKE 1 TABLET BY MOUTH AT BEDTIME NEEDED FOR SLEEP OR INSOMNIA potassium chloride 20 mEq tablet,ER particles/crystals 20 meq PO DAILY Patient Comments: TAKE 1 TABLET BY MOUTH DAILY methocarbamol 750 mg tablet 750 mg PO DAILY PRN (Reason: muscle spasms) carbidopa-levodopa 10-100 mg tablet 1 tab PO BEDTIME Patient Comments: TAKE 1 TABLET BY MOUTH AT BEDTIME furosemide 20 mg tablet 20 mg PO BID Patient Comments: TAKE 1 TABLET BY MOUTH TWICE DAILY Eliquis 5 mg tablet 5 mg PO BID Hold Instructions: Patient Refused Patient Comments: TAKE 1 TABLET BY MOUTH TWICE DAILY aripiprazole [Abilify] 5 mg tablet 5 mg PO BEDTIME metoprolol succinate 25 mg tablet extended release 24 hr 25 mg PO BID Discontinued diltiazem HCl 60 mg tablet 60 mg PO QID Patient Comments: Patient has been taking twice a day per daughter, but is go back to 4 times a day as scheduled Did you review [place] C[place] for ALL controlled substances?: Not Applicable Discussed opioids are addictive and Narcan is available by prescription or from pharmacy.: No Condition: Stable
== END 2024-02-18 11:35 | disposition home or self-care (01) | DRG 308 ==
LOC: ED 18:07 → SCU 18:07 → OBSVTOIN 20:56 → SCU 22:10
PROVIDERS: ADMIT Nurse Practitioner Family; ATTEND Hospitalist
DX: U07.1 COVID-19; Z51.81 Encounter for therapeutic drug level monitoring; J44.1 Chronic obstructive pulmonary disease with (acute) exacerbation; I48.91 Unspecified atrial fibrillation; J96.01 Acute respiratory failure with hypoxia; F39 Unspecified mood [affective] disorder; Z79.899 Other long term (current) drug therapy

== ENCOUNTER 2024-04-27 13:02 | Inpatient (IN) ==
[2024-04-27 13:24] LABS: BASOPHILS % (AUTO) 0.4 % (0.0-3.0); EOSINOPHILS # (AUTO) 0.3 K/ul (0.0-0.7); EOSINOPHILS % (AUTO) 2.5 % (0.0-7.0); HEMATOCRIT 35.6 % (37.0-47.0); HEMOGLOBIN 11.1 g/dl (12.0-16.0); IMMATURE GRANULOCYTE # (AUTO) 0.1 (0.0-1.0); IMMATURE GRANULOCYTE % (AUTO) 0.5 % (0.0-5.0); LYMPHOCYTES # (AUTO) 2.4 K/uL (0.60-3.4); LYMPHOCYTES % (AUTO) 23.4 (10.0-50.0); MEAN CORPUSCULAR HEMOGLOBIN 28.4 pg (27.0-31.0); MEAN CORPUSCULAR HGB CONC 31.2 (31.8-35.4); MONOCYTES # (AUTO) 1.1 K/uL (0.4-2.0); MONOCYTES % (AUTO) 10.4 (0-10); NEUTROPHILS # (AUTO) 6.5 K/ul (2.0-6.9); NEUTROPHILS % (AUTO) 62.8 % (42.2-75.2); PLATELET COUNT 416 10^3/uL (140-440); RDW COEFFICIENT OF VARIATION 17.2 % (11.6-14.8); RED BLOOD COUNT 3.91 10^6/ul (4.20-5.40); WHITE BLOOD COUNT 10.38 K/ul (4.6-10.2)
[2024-04-27] MEDS: CARDIZEM INJ IVP STA (13:24)
[2024-04-27 13:35] LABS: ABG O2 HGB 89.5 % (95-100); BEecf -0.1 (-2.0-3.0); COHb 2.8 (0.5-1.5); HCO3 22.6 (21-28); MetHb 0.8 (0-1.5); TCO2 23.4 (19-24); sO2 91.4 % (94-98); tHb 11.5 g/dl (11.7-17.4)
[2024-04-27 13:38] LABS: ABG PH 7.53 (7.35-7.45)
[2024-04-27 13:38] LABS: ALANINE AMINOTRANSFERASE 31.1 U/L (0-35); ALBUMIN 4.23 g/dL (3.5-5.0); ALKALINE PHOSPHATASE 87.9 U/L (53-141); BILIRUBIN,TOTAL 1.17 mg/dL (0.2-1.3); BLOOD UREA NITROGEN 15.4 mg/dL (7-17); CALCIUM 9.42 mg/dL (8.4-10.2); CARBON DIOXIDE 23.9 mmol/L (22-30.0); CHLORIDE 106.4 mmol/L (98-107); CREATININE 1.12 mg/dL (0.60-1.30); GLUCOSE 109.3 mg/dL (74-106); POTASSIUM 3.85 mmol/L (3.5-5.1); SODIUM 138.5 mmol/L (134.5-145); TOTAL PROTEIN 7.69 g/dL (6.3-8.2)
[2024-04-27] MEDS: ATIVAN IVP ONE ×2 (13:48→19:52)
[2024-04-27 13:49] LABS: TROPONIN I < 0.012 ng/ml (0.0000-0.120)
[2024-04-27 13:53] LABS: SARS COV-2 RNA RAPID NAAT NEGATIVE (NEGATIVE)
[2024-04-27 14:01] LABS: MOLECULAR FLU A NEGATIVE BY NAAT (NEGATIVE); MOLECULAR FLU B NEGATIVE BY NAAT (NEGATIVE)
--- NOTE | 2024-04-27 14:10 | DI ---
EXAM: CHEST ONE-VIEW HISTORY: Cough COMPARISON: AP chest from 02/16/2024 FINDINGS: The cardiomediastinal silhouette is stable but prominent. The pulmonary vasculature is n ormal. A small right pleural effusion is suggested with subjacent opacities. There is prominence of the interstitial lung markings diffusely. No pneumothoraces or pleural effusions. A right reverse t otal shoulder arthroplasty is noted. IMPRESSION: 1. Persistent versus recurrent right lung base infiltrate. 2. Prominent interstitial lung markings. Underlying interstitial lung disease is a possibility. 3. Small right pleural effusion. .
[2024-04-27] MEDS: LASIX IVP STA (14:11)
--- NOTE | 2024-04-27 14:52 | ED.PDOC ---
General ED Provider: Dr. GLORY CARO MD Chief Complaint: Respiratory Complaint Stated Complaint: 83 years old female past medical history of psychogenic epilepsy, A-fib coming to the emergency room for shortness of breath. Patient has stopped her medications lately saying that she cannot afford them and her heart rate has been creeping up since she stopped the medications. Today patient started feeling some shortness of breath so she was brought into the emergency room for evaluation. Otherwise patient denies any headache, chest pain, fever, changes in bowel or urine. During history and physical exam patient is faking seizures like activity. Time Seen by Provider: 04/27/24 13:18 Information Source: Patient and Family Primary Care Provider: DEBBIE EDWARDS Nursing and Triage Documentation Reviewed and Agree: Yes What is Opioid Naive?: *Opioid Naive implies the patient is not already taking opioids or not chronically receiving opioids on a daily basis. *PRN dosing is not "usually" associated with tolerance. *Patients are at higher risk of over-sedation and aspiration. What is Opioid Tolerant?: *Opioid Tolerance implies less than the expected response to an opioid. *Acquired tolerance is defined by the patient taking 60mg of oral morphine daily (or equianalgesic dose of another opioid) for 1 week or more. *Often associated with chronic pain. *May take more than usual dose to achieve desired pain control. 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 - Other specific personality disorders (ICD-10) Social History Smoking and tobacco status: Former smoker Alcohol intake: never Substance use type: does not use Nora/zoroastrian: UATSDIN Special nora needs: No Agree to transfusion: Yes Adopted: No Caregiver/support person: No Household members: none Housing: house Marital status: W / Lives independently: Yes Number of children: 3 Number of grandchildren: 3 Highest education level completed: GED or equivalent Financial difficulty paying for basics: not very hard service: No Current occupational status: retired Pets and animals: Yes (2 cats) Leisure activites: art and other History of recent travel: No Sexually active: No Do you think of yourself as: straight/heterosexual Current gender identity: female Seatbelt use: always Drives intoxicated or rides with intoxicated 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 Water heater temperature set < 120 degrees: Yes Working smoke detector in home: Yes Fire extinguisher in home: Yes Carbon monoxide detector in home: No Firearms in home: No Female Reproductive History Menstrual Hx Hysterectomy: Yes Physical Exam Physical Exam Appearance: Reports Ill-appearing Ill-appearing: Mild Respiratory: Reports Airway patent, Breath sounds diminished and Rhonchi Cardiovascular: Reports No rub, No murmur, Irregular rhythm and Tachycardia GI/: Reports Soft, Nontender, No masses and Bowel sounds normal Musculoskeletal: Reports ROM intact and No edema (Trace edema in bilateral lower extremities) Skin: Reports Warm and Dry Neurological: Reports Sensation intact and Motor intact Psychiatric: Reports Affect appropriate Interpretation EKG Interpretation EKG Interpretation By: ED Physician Time of EKG #1: 13:23 Rate: Tachy Rhythm: Other (A-fib with RVR) Ectopy: None [place]: [place] Interpretation: No signs of acute ischemia Critical Care Note Critical Care Note Total Critical Care Time (mins): 30 Course Course 04/27/24 13:20 04/27/24 13:20 Orders, Labs, Meds: Lab Review 04/27/24 04/27/24 04/27/24 13:20 13:25 13:32 WBC 10.38 H RBC 3.91 L Hgb 11.1 L Hct 35.6 L MCV 91.0 MCH 28.4 MCHC 31.2 L RDW Coeff of Magda 17.2 H Plt Count 416 Immature Gran % (Auto) 0.5 Neut % (Auto) 62.8 Lymph % (Auto) 23.4 [place] % (Auto) 10.4 H Eos % (Auto) 2.5 Baso % (Auto) 0.4 Neut # (Auto) 6.5 Lymph # (Auto) 2.4 [place] # (Auto) 1.1 Eos # (Auto) 0.3 Baso # (Auto) 0.0 Immature Gran # (Auto) 0.1 Puncture Site [employer] Excess -0.1 O2 Saturation 91.4 L ABG pH 7.53 H* ABG pCO2 27.0 L ABG pO2 54.0 L* ABG HCO3 22.6 ABG Total CO2 23.4 Lamberto Test Pos Hemoglobin 0.8 Oxyhemoglobin 89.5 L Carboxyhemoglobin 2.8 H Total Hemoglobin 11.5 L Sodium 138.5 Potassium 3.85 Chloride 106.4 Carbon Dioxide 23.9 Anion Gap 12.05 BUN 15.4 Creatinine 1.12 Estimated GFR (MDRD) 47.00 BUN/Creatinine Ratio 13.75 Glucose 109.3 H Calcium 9.42 Total Bilirubin 1.17 AST 59.0 H ALT 31.1 Alkaline Phosphatase 87.9 Troponin I < 0.012 NT-Pro-B Natriuret Pep 5970 H Total Protein 7.69 Albumin 4.23 Globulin 3.46 Albumin/Globulin Ratio 1.22 D-Dimer 1598.89 H Influ A Molecular Assay Negative by naat Influ B Molecular Assay Negative by naat SARS CoV-2 RNA Rapid IZAIAH Negative Orders Category Date Time Status ABG DRAW REQUEST Stat CARDIO 04/27/24 13:18 Completed EKG-(ED ONLY) Stat CARDIO 04/27/24 13:11 Completed NPO REMINDER: IMAGING ONCE CARE 04/27/24 14:20 Active ED APPLY O2 .ONCE EMERGENCY 04/27/24 13:11 Active ED CABLE COVERER APPLIED .ONCE EMERGENCY 04/27/24 13:11 Active ABG COOX Stat LAB 04/27/24 13:32 Completed CBC W/ AUTO DIFF Stat LAB 04/27/24 13:20 Completed COMPREHENSIVE METABOLIC PANEL Stat LAB 04/27/24 13:20 Completed D-DIMER Stat LAB 04/27/24 13:20 Completed FLU A/B MOLECULAR Stat LAB 04/27/24 13:25 Completed MAGNESIUM Stat LAB 04/27/24 13:20 Received NT-PROBNP(ED) Stat LAB 04/27/24 13:20 Completed SARS COV-2 RNA RAPID IZAIAH Stat LAB 04/27/24 13:25 Completed TROPONIN I Stat LAB 04/27/24 13:20 Completed URINALYSIS C & S IF INDICATED Stat LAB 04/27/24 15:31 Uncollected Diltiazem HCl [Cardizem Inj] Meds 04/27/24 13:18 Discontinued 15 mg IVP ONCE STA Diltiazem HCl [Cardizem] 125 mg Meds 04/27/24 14:30 Active 0.9 % Sodium Chloride [Sodium Chloride 100Ml] 100 ml IV TITRATION Furosemide [Lasix] Meds 04/27/24 13:57 Discontinued 20 mg IVP ONCE STA Lorazepam [Ativan] Meds 04/27/24 13:37 Discontinued 0.5 mg IVP ONCE ONE Metoprolol Tartrate [Lopressor] Meds 04/27/24 13:37 Discontinued 5 mg IVP ONCE STA CHEST, 1V AP ONLY Stat RADS 04/27/24 13:11 Completed CTA CHEST PE PROTOCOL Stat RADS 04/27/24 14:20 Completed Medications Generic Name Dose Route Start Last Admin Trade Name Freq PRN Reason Stop Dose Admin Diltiazem HCl 125 mg/ Sodium 125 mls @ 5 mls/hr 04/27/24 14:30 04/27/24 16:20 Chloride IV 15 mg/hr TITRATION JULIA 15 mls/hr Titration Protocol 5 MG/HR Discontinued Medications Generic Name Dose Route Start Last Admin Trade Name Freq PRN Reason Stop Dose Admin Diltiazem HCl 15 mg 04/27/24 13:18 04/27/24 13:24 Diltiazem Hcl Inj 25 Mg/5 Ml Vial IVP 04/27/24 13:19 15 mg ONCE STA Administration Furosemide 20 mg 04/27/24 13:57 04/27/24 14:11 Furosemide Inj 20 Mg/2 Ml Vial IVP 04/27/24 13:58 20 mg ONCE STA Administration Lorazepam 0.5 mg 04/27/24 13:37 04/27/24 13:48 Lorazepam Inj 2 Mg/Ml Vial IVP 04/27/24 13:38 0.5 mg ONCE ONE Administration Metoprolol Tartrate 5 mg 04/27/24 13:37 Metoprolol Tartrate 5 Mg/5 Ml Vial IVP 04/27/24 13:38 ONCE STA Vital Signs: Temp Pulse Resp BP Pulse Ox O2 Flow Rate 04/27/24 14:14 120 H 28 H 129/73 96 2 04/27/24 13:54 130 H 33 H 135/76 95 2 04/27/24 13:41 110 H 37 H 161/83 H 95 2 04/27/24 13:05 97.0 F L 185 H 28 H 154/118 H 87 L Patient with A-fib with RVR due to medication noncompliance heart rate in the 180s upon presentation patient was given 15 mg of Cardizem improved heart rate to the 130s he was given 20 mg of Lasix and started on Cardizem drip for rate control. D-dimer around 1500 and due to noncompliance of Eliquis will order CTA PE protocol. No leukocytosis or episodes of infection at this time. Patient will likely need to be admitted for further diuresis and heart rate control and getting her restarted on her oral medications. Patient was started on Cardizem drip current heart rate at 110, CT is negative for PE Called hospitalist oncology and discussed patient case with her and she agreed to admit the patient under her services, added magnesium level to previous labs as recommended by hospitalist Discharge Plan Discharge Patient Disposition: ADMITTED INPATIENT Discharge Problem: Atrial fibrillation with rapid ventricular response, Acute on chronic congestive heart failure Did you review [place] [employer] for ALL controlled substances?: Not Applicable ED Provider: GLORY CARO Condition: Stable
[2024-04-27] MEDS: CARDIZEM 125 MG in SODIUM CHLORIDE 100ML 100 ML IV SCH (15:09)
--- NOTE | 2024-04-27 15:58 | CT ---
EXAM: CHEST CTA WITH CONTRAST (PULMONARY ARTERY) HISTORY: Chest pain and shortness of breath. TECHNIQUE: CTA acquisition of the chest from the thoracic inlet to the upper abdomen following IV con trast administration timed to filling of the pulmonary artery. 3D/MIP/VR images were utilized. CT Dose Reduction Techniques Employed: Yes. IV Contrast: Administered. COMPARISON: None. FINDINGS: Pulmonary Embolism: Diagnostic quality: Adequate. Central (Main/Lobar/Interlobar): No embolus. Peripheral (Segmental/Subsegmental): No embolus. Right ventricle/Left ventricle ratio: 1.0. Lines, Tubes, Devices: None. Lung Parenchyma and Airways: Central airways are patent without endobronchial lesion. Diffuse emphys ematous changes with coarse interstitial markings. Right lower lobe subsegmental atelectasis. Pleural Space: Mild right pleural effusion. Trace left pleural effusion. Mediastinum and Karine: Thyroid gland is normal. Multiple prominent mediastinal and hilar nodes, some of which measure over 1 cm in short axis and may be pathologic. Heart and Pericardium: There is no pericardial effusion or thickening. The heart is not enlarged. Vessels: The thoracic aorta is of normal caliber. Bones: There is no fracture or lytic lesion. Soft Tissues: Chest wall soft tissues are unremarkable. Upper Abdomen: There is reflux of contrast into the inferior vena cava and hepatic veins suggesting right heart failure. Left renal cortical cysts. Bilateral extrarenal pelvis. IMPRESSION: 1. Normal CT pulmonary angiogram with no evidence of pulmonary artery embolism. 2. Significant diffuse emphysematous changes. Small right effusion and subsegmental atelectasis in the right lower lobe. Trace left pleural effusion. 3. Mediastinal and hilar adenopathy. 4. Moderate reflux of contrast into the inferior vena cava and hepatic veins may be due to right hea rt failure. All CT scans are performed using dose optimization techniques as appropriate to the performed exam an d include at least one of the following: Automated exposure control, adjustment of the mA and/or kV according t o size, and the use of iterative reconstruction technique.
[2024-04-27 17:19] LABS: BILIRUBIN,URINE Negative (NEGATIVE); CLARITY,URINE Clear (CLEAR); COLOR,URINE Yellow (YELLOW); GLUCOSE, URINE (UA) Negative (NEGATIVE); KETONES,URINE Negative (NEGATIVE); LEUKOCYTE ESTERASE ,URINE 1+ (NEGATIVE); NITRITE,URINE Negative (NEGATIVE); PH,URINE 6.5 (5-9); PROTEIN,URINE Negative (NEGATIVE); URINE, BLOOD Negative (NEGATIVE); UROBILINOGEN,URINE 0.2 (0.2)
[2024-04-27] MEDS: LANOXIN IVP STA (17:21)
[2024-04-27 17:25] LABS: RENAL EPITHELIAL CELLS,URINE 0-2 (NOT PRESENT)
[2024-04-27] MEDS: LOPRESSOR IVP STA (17:41)
[2024-04-27] MEDS: ELIQUIS PO SCH (18:18)
[2024-04-27] MEDS: NEURONTIN PO SCH (20:15)
[2024-04-27] MEDS: DESYREL PO SCH (20:15)
[2024-04-27] MEDS: TYLENOL PO PRN (20:15)
[2024-04-27] MEDS: LOPRESSOR PO SCH (21:44)
[2024-04-27] MEDS: SINEMET 25-100 PO SCH (21:58)
[2024-04-27] MEDS: CARBIDOPA LEVODOPA PO SCH (21:59)
[2024-04-28 05:22] LABS: BASOPHILS % (AUTO) 0.4 % (0.0-3.0); EOSINOPHILS # (AUTO) 0.4 K/ul (0.0-0.7); EOSINOPHILS % (AUTO) 5.2 % (0.0-7.0); HEMATOCRIT 31.7 % (37.0-47.0); HEMOGLOBIN 9.8 g/dl (12.0-16.0); IMMATURE GRANULOCYTE % (AUTO) 0.4 % (0.0-5.0); LYMPHOCYTES # (AUTO) 1.8 K/uL (0.60-3.4); LYMPHOCYTES % (AUTO) 23.3 (10.0-50.0); MEAN CORPUSCULAR HEMOGLOBIN 28.5 pg (27.0-31.0); MEAN CORPUSCULAR HGB CONC 30.9 (31.8-35.4); MEAN CORPUSCULAR VOLUME 92.2 fl (81.0-99.0); MONOCYTES # (AUTO) 0.8 K/uL (0.4-2.0); MONOCYTES % (AUTO) 9.9 (0-10); NEUTROPHILS # (AUTO) 4.7 K/ul (2.0-6.9); NEUTROPHILS % (AUTO) 60.8 % (42.2-75.2); PLATELET COUNT 346 10^3/uL (140-440); RDW COEFFICIENT OF VARIATION 17.2 % (11.6-14.8); RED BLOOD COUNT 3.44 10^6/ul (4.20-5.40); WHITE BLOOD COUNT 7.68 K/ul (4.6-10.2)
[2024-04-28 05:45] LABS: ALBUMIN 3.5 g/dL (3.5-5.0); ALKALINE PHOSPHATASE 58.5 U/L (53-141); ASPARTATE AMINO TRANSFERASE 44.7 U/L (14-36); BILIRUBIN,TOTAL 0.96 mg/dL (0.2-1.3); BLOOD UREA NITROGEN 14.8 mg/dL (7-17); CALCIUM 8.52 mg/dL (8.4-10.2); CHLORIDE 106.2 mmol/L (98-107); CREATININE 1.09 mg/dL (0.60-1.30); GLUCOSE 103.4 mg/dL (74-106); POTASSIUM 3.4 mmol/L (3.5-5.1); SODIUM 137.9 mmol/L (134.5-145); TOTAL PROTEIN 6.38 g/dL (6.3-8.2)
[2024-04-28] MEDS: XOPENEX 1.25 MG NEB PRN (08:35)
[2024-04-28] MEDS: K-DUR PO ONE (09:09)
[2024-04-28] MEDS: CARDIZEM PO SCH (09:10)
[2024-04-28] MEDS: SPIRIVA IH SCH (09:10)
[2024-04-28] MEDS: VISTARIL PO PRN (09:10)
--- NOTE | 2024-04-28 10:49 | PCM ---
Date of Service Date Seen by Provider: 04/28/24 Time Seen by Provider: 08:55 Admit Day/Time Admission Date: 04/27/24 Admission Time: 18:09 Reason for Admission Chief Complaint: AFIB RVR; CHF Hospital Provider Hospital Provider: JARROD GRAYSON PA-C, [facility] Primary Care Physician Primary Care Physician: DEBBIE EDWARDS History of Present Illness History of Present Illness: Patient is a 83 year old female from home with pmhx of A-fib, heart failure, COPD, and multiple psychiatric disorders such as bipolar disorder, nonepileptic seizure disorder, anxiety, histrionic behavior who presents to the ER with worsening shortness of breath and elevated heart rate. Patient is historically noncompliant with her medications and she states that she has not taken them for likely weeks at this point. She states that she just does not think she needs them. She was found to have a heart rate in the 170s to 180s in the ER. She was given IV metoprolol and Cardizem with some improvement. She was ultimately put on a Cardizem drip. She also was given 1 dose of digoxin IV. Otherwise labs rather unremarkable other than an elevated D-dimer. CTA showed no PE or pneumonia but does show COPD. She was requiring oxygen. Patient admitted to [facility]. Patient was maxed out on Cardizem drip but was able to be weaned down through the night. Her blood pressure was somewhat low this morning and therefore Cardizem drip was weaned to 2.5 mg. Heart rate has been more controlled consistently under 110. She is still requiring oxygen, suspect that this could be her baseline with her COPD she just has not been compliant. Patient did mention to nursing staff last night that she does not want to be alive any longer and wish God would just kill her. She was placed on suicide precautions. Patient does have a significant history of suicidal ideations and attempts. She was hospitalized for an attempt of cutting her jugular in just the last few months. When this provider asks her this morning if she is suicidal she says no, "I am just so tired". She states that she does not have a plan. She lives at home alone and her daughter checks on her often. She is not interested in prison placement or anything like that even if it would offer her more socialization. Case Discussed With Case Discussed With: Patient's case was discussed with the ER Physicians, Dr. Teran. 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 - Other specific personality disorders (ICD-10) Social History Smoking and tobacco status: Former smoker Alcohol intake: never Substance use type: does not use Nora/episcopal: HOAHAOISM Special nora needs: No Agree to transfusion: Yes Adopted: No Caregiver/support person: No Household members: none Housing: house Marital status: W / Lives independently: Yes Number of children: 3 Number of grandchildren: 3 Highest education level completed: GED or equivalent Financial difficulty paying for basics: not very hard service: No Current occupational status: retired Pets and animals: Yes (2 cats) Leisure activites: art and other History of recent travel: No Sexually active: No Do you think of yourself as: straight/heterosexual Current gender identity: female Seatbelt use: always Drives intoxicated or rides with intoxicated 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 Water heater temperature set < 120 degrees: Yes Working smoke detector in home: Yes Fire extinguisher in home: Yes Carbon monoxide detector in home: No Firearms in home: No Allergies Allergies Allergy/AdvReac Type Severity Reaction Status Date / Time No Known Allergies Allergy Verified 04/27/24 13:14 Current Medications Home Medications metoprolol succinate 25 mg tablet,extended release 24 hr 25 mg PO BID 09/04/22 [History Confirmed 04/27/24 Last Taken Unknown] apixaban 5 mg tablet (Eliquis) 5 mg PO BID anticoagulation 02/16/24 [History Confirmed 04/27/24 Last Taken Unknown] carbidopa 10 mg-levodopa 100 mg tablet 1 tab PO BEDTIME 02/16/24 [History Confirmed 04/27/24 Last Taken Unknown] furosemide 20 mg tablet 20 mg PO BID 02/16/24 [History Confirmed 04/27/24 Last Taken Unknown] methocarbamol 750 mg tablet 750 mg PO DAILY PRN muscle spasms 02/16/24 [History Confirmed 04/27/24 Last Taken Unknown] potassium chloride 20 mEq tablet,extended release(part/cryst) 20 meq PO DAILY 02/16/24 [History Confirmed 04/27/24 Last Taken Unknown] trazodone 50 mg tablet 50 mg PO BEDTIME 02/16/24 [History Confirmed 04/27/24 Last Taken Unknown] aripiprazole 5 mg tablet (Abilify) 5 mg PO BEDTIME 02/17/24 [History Confirmed 04/27/24 Last Taken Unknown] dexamethasone 6 mg tablet 6 mg PO DAILY #8 tabs 02/18/24 [Rx Confirmed 04/27/24 Last Taken Unknown] diltiazem HCl 240 mg capsule,extended release 24 hr 240 mg PO DAILY #30 caps 02/18/24 [Rx Confirmed 04/27/24 Last Taken Unknown] tiotropium bromide 2.5 mcg/actuation mist for inhalation (Spiriva Respimat) 2 puff inhalation DAILY #4 grams 02/18/24 [Rx Confirmed 04/27/24 Last Taken Unknown] gabapentin 300 mg capsule 300 mg PO TID 04/27/24 [History Confirmed 04/27/24 Last Taken Unknown] Home Acetaminophen (Acetaminophen 325 Mg Tablet) 650 mg PO Q4H PRN PRN Reason: Mild Pain Last Admin: 04/27/24 20:15 Dose: 650 mg Apixaban (Apixaban 5 Mg Tab) 5 mg PO BID JULIA Last Admin: 04/28/24 09:10 Dose: 5 mg Carbidopa/Levodopa (Carbidopa/Levodopa 25/100 Tablet) 1 tab PO BEDTIME JULIA Last Admin: 04/27/24 21:58 Dose: 1 tab Diltiazem HCl (Diltiazem Hcl 60 Mg Tablet) 60 mg PO Q6HR JULIA Last Admin: 04/28/24 11:29 Dose: 60 mg Hydroxyzine Pamoate (Hydroxyzine Pamoate 25 Mg Capsule) 25 mg PO QID PRN PRN Reason: Itching Last Admin: 04/28/24 09:10 Dose: 25 mg Diltiazem HCl 125 mg/ Sodium (Chloride) 125 mls @ 5 mls/hr IV TITRATION [facility]; Protocol Last Titration: 04/28/24 10:30 Dose: 0 mg/hr, 0 mls/hr Levalbuterol HCl (Levalbuterol Hcl 1.25 Mg/3 Ml Vial.Neb) 1.25 mg NEB RTQ6H PRN PRN Reason: Wheezing Last Admin: 04/28/24 08:35 Dose: 1.25 mg Metoprolol Tartrate (Metoprolol Tartrate 25 Mg Tablet) 12.5 mg PO BID [facility] Last Admin: 04/28/24 09:11 Dose: Not Given Sodium Chloride (0.9% Sodium Chloride 10 Ml Disp.Syrin) 1 syr IVF Q8HR [facility] Last Admin: 04/28/24 05:45 Dose: Not Given Tiotropium [place] (Tiotropium [place] 18 Mcg Cap.W.Dev) 1 cap IH DAILY [facility] Last Admin: 04/28/24 09:10 Dose: 1 cap Trazodone HCl (Trazodone Hcl 50 Mg Tablet) 50 mg PO BEDTIME [facility] Last Admin: 04/27/24 20:15 Dose: 50 mg Discontinued Medications Digoxin (Digoxin Inj 500 Mcg/2 Ml Amp) 250 mcg IVP ONCE STA Stop: 04/27/24 17:07 Last Admin: 04/27/24 17:21 Dose: 250 mcg Diltiazem HCl (Diltiazem Hcl Inj 25 Mg/5 Ml Vial) 15 mg IVP ONCE STA Stop: 04/27/24 13:19 Last Admin: 04/27/24 13:24 Dose: 15 mg Furosemide (Furosemide Inj 20 Mg/2 Ml Vial) 20 mg IVP ONCE STA Stop: 04/27/24 13:58 Last Admin: 04/27/24 14:11 Dose: 20 mg Gabapentin (Gabapentin 300 Mg Capsule) 300 mg PO TID [facility] Last Admin: 04/28/24 09:10 Dose: 300 mg Lorazepam (Lorazepam Inj 2 Mg/Ml Vial) 0.5 mg IVP ONCE ONE Stop: 04/27/24 13:38 Last Admin: 04/27/24 13:48 Dose: 0.5 mg Lorazepam (Lorazepam Inj 2 Mg/Ml Vial) 1 mg IVP ONCE ONE Stop: 04/27/24 19:17 Last Admin: 04/27/24 19:52 Dose: 1 mg Lorazepam (Lorazepam Inj 2 Mg/Ml Vial) 1 mg IVP ONCE ONE Stop: 04/28/24 12:57 Last Admin: 04/28/24 13:10 Dose: 1 mg Metoprolol Tartrate (Metoprolol Tartrate 5 Mg/5 Ml Vial) 5 mg IVP ONCE STA Stop: 04/27/24 13:38 Last Admin: 04/27/24 17:41 Dose: Not Given Non-Formulary Medication (Carbidopa-Levodopa) 1 tab PO BEDTIME JULIA Last Admin: 04/27/24 21:59 Dose: Not Given Potassium Chloride (Potassium Chloride 20 Meq Tab) 40 meq PO ONCE ONE Stop: 04/28/24 08:31 Last Admin: 04/28/24 09:09 Dose: 40 meq Opioid Naive vs. Tolerant Does Patient Take Opioids?: No Is Patient Opioid Naive?: Yes What is Opioid Naive?: *Opioid Naive implies the patient is not already taking opioids or not chronically receiving opioids on a daily basis. *PRN dosing is not "usually" associated with tolerance. *Patients are at higher risk of over-sedation and aspiration. Is Patient Opioid Tolerant?: No What is Opioid Tolerant?: *Opioid Tolerance implies less than the expected response to an opioid. *Acquired tolerance is defined by the patient taking 60mg of oral morphine daily (or equianalgesic dose of another opioid) for 1 week or more. *Often associated with chronic pain. *May take more than usual dose to achieve desired pain control. Review of Systems Constitutional: Reports Fatigue and Weakness Head: Reports Normocephalic and Atraumatic Cardiovascular: Reports Palpitations; Denies Chest pain, Chest Pressure or Edema Respiratory: Reports Cough and Shortness of air Gastrointestinal: Denies Nausea, Vomiting, Diarrhea, Abdominal pain or Melena Genitourinary: Denies Dysuria or Frequency Dermatologic: Denies Rashes Psychiatric: Reports Depression, Anxiety, Hopelessness and Suicidal (no plan); Denies Hallucinations Physical examination Most Recent Vital Signs: Most Recent Vital Signs Temperature 97.7 F 04/28/24 10:00 Temperature Source Oral 04/28/24 10:00 Temperature Source Infrared 04/27/24 13:05 Pulse Rate 112 H 04/28/24 10:00 Respiratory Rate 15 04/28/24 10:00 Blood Pressure 116/62 04/28/24 10:00 Blood Pressure Mean 80 04/28/24 10:00 Blood Pressure Left Arm 131/78 04/27/24 18:04 Blood Pressure Location Left Arm 04/28/24 10:00 Blood Pressure Position Supine 04/28/24 05:40 O2 Sat by Pulse Oximetry 91 L 04/28/24 10:00 Oxygen Delivery Method Nasal Cannula 04/28/24 10:00 Oxygen Flow Rate 4 04/28/24 10:00 Height 163 ft 06/11/24 18:04 Weight 53 lb 04/27/24 18:04 Telemetry Type Bedside Monitor 04/28/24 07:00 Telemetry Monitoring Continues 04/28/24 07:00 Irregular Telemetry Rate (Approximate) 70-80 BPM 04/28/24 01:00 Telemetry Heart Rate 80 04/28/24 07:00 Telemetry SPO2 94 04/28/24 07:00 EKG QRS Interval 0.13 H 04/28/24 07:00 Telemetry Strip Reading afib w/ BBB 04/28/24 07:00 Appearance: Positive No Apparent Distress and Alert and Oriented x3 Skin: Positive [place], Warm, Good Turgor and Good Color; Negative Rashes HEENT: Positive Normocephalic, Atraumatic and Oral Mucous Moist Neck: Positive Supple and Midline Trachea Chest/Lungs: Positive Clear to Auscultation Bilaterally; Negative Rales, Rhonci or Wheezes Heart: Positive Irregular Rhythm GI/: Positive Soft, Nontender, Bowel Sounds Normal and No Distention Extremities: Positive Edema (+trace) Neurological: Positive Cranial Nerves Intact, Alert and Oriented Psychiatric: Positive Oriented x4 and Other (+flat affect, makes concerning comments ) Labs This Visit Labs This Visit: Labs This Visit 04/27/24 04/27/24 04/27/24 13:20 13:25 13:32 WBC 10.38 H RBC 3.91 L Hgb 11.1 L Hct 35.6 L MCV 91.0 MCH 28.4 MCHC 31.2 L RDW Coeff of Magda 17.2 H Plt Count 416 Immature Gran % (Auto) 0.5 Neut % (Auto) 62.8 Lymph % (Auto) 23.4 [place] % (Auto) 10.4 H Eos % (Auto) 2.5 Baso % (Auto) 0.4 Neut # (Auto) 6.5 Lymph # (Auto) 2.4 [place] # (Auto) 1.1 Eos # (Auto) 0.3 Baso # (Auto) 0.0 Immature Gran # (Auto) 0.1 Puncture Site Rrad Base Excess -0.1 O2 Saturation 91.4 L ABG pH 7.53 H* ABG pCO2 27.0 L ABG pO2 54.0 L* ABG HCO3 22.6 ABG Total CO2 23.4 [place]amber[place] Test Pos Hemoglobin 0.8 Oxyhemoglobin 89.5 L Carboxyhemoglobin 2.8 H Total Hemoglobin 11.5 L Sodium 138.5 Potassium 3.85 Chloride 106.4 Carbon Dioxide 23.9 Anion Gap 12.05 BUN 15.4 Creatinine 1.12 Estimated GFR (MDRD) 47.00 BUN/Creatinine Ratio 13.75 Glucose 109.3 H Calcium 9.42 Magnesium 2.47 H Total Bilirubin 1.17 AST 59.0 H ALT 31.1 Alkaline Phosphatase 87.9 Troponin I < 0.012 NT-Pro-B Natriuret Pep 5970 H Total Protein 7.69 Albumin 4.23 Globulin 3.46 Albumin/Globulin Ratio 1.22 D-Dimer 1598.89 H Urine Color Urine Clarity Urine pH Ur Specific [place] Urine Protein Urine Glucose (UA) Urine Ketones Urine Blood Urine Nitrite Urine Bilirubin Urine Urobilinogen Ur Leukocyte Esterase Urine Microscopic WBC Ur Squamous Epith Cells Ur Renal Epithelial Cell Influ A Molecular Assay Negative by naat Influ B Molecular Assay Negative by naat SARS CoV-2 RNA Rapid IZAIAH Negative 04/27/24 04/28/24 14:43 05:09 WBC 7.68 RBC 3.44 L Hgb 9.8 L Hct 31.7 L MCV 92.2 MCH 28.5 MCHC 30.9 L RDW Coeff of Magda 17.2 H Plt Count 346 Immature Gran % (Auto) 0.4 Neut % (Auto) 60.8 Lymph % (Auto) 23.3 [place] % (Auto) 9.9 Eos % (Auto) 5.2 Baso % (Auto) 0.4 Neut # (Auto) 4.7 Lymph # (Auto) 1.8 [place] # (Auto) 0.8 Eos # (Auto) 0.4 Baso # (Auto) 0.0 Immature Gran # (Auto) 0.0 Puncture Site Base Excess O2 Saturation ABG pH ABG pCO2 ABG pO2 ABG HCO3 ABG Total CO2 [place] Test Hemoglobin Oxyhemoglobin Carboxyhemoglobin Total Hemoglobin Sodium 137.9 Potassium 3.40 L Chloride 106.2 Carbon Dioxide 26.0 Anion Gap 9.10 BUN 14.8 Creatinine 1.09 Estimated GFR (MDRD) 48.00 BUN/Creatinine Ratio 13.57 Glucose 103.4 Calcium 8.52 Magnesium Total Bilirubin 0.96 AST 44.7 H ALT 10.0 Alkaline Phosphatase 58.5 D Troponin I NT-Pro-B Natriuret Pep Total Protein 6.38 Albumin 3.50 Globulin 2.88 Albumin/Globulin Ratio 1.21 D-Dimer Urine Color Yellow Urine Clarity Clear Urine pH 6.5 Ur Specific [place] 1.015 Urine Protein Negative Urine Glucose (UA) Negative Urine Ketones Negative Urine Blood Negative Urine Nitrite Negative Urine Bilirubin Negative Urine Urobilinogen 0.2 Ur Leukocyte Esterase 1+ H Urine Microscopic WBC 5-10 Ur Squamous Epith Cells 2-5 Ur Renal Epithelial Cell 0-2 Influ A Molecular Assay Influ B Molecular Assay SARS CoV-2 RNA Rapid IZAIAH Microbiology This Visit 04/27/24 14:43 Urine,Clean Catch Urine Culture - Preliminary Imaging Imaging: EXAM: CHEST ONE-VIEW HISTORY: Cough COMPARISON: AP chest from 02/16/2024 FINDINGS: The cardiomediastinal silhouette is stable but prominent. The pulmonary vasculature is normal. A small right pleural effusion is suggested with subjacent opacities. There is prominence of the interstitial lung markings diffusely. No pneumothoraces or pleural effusions. A right reverse total shoulder arthroplasty is noted. IMPRESSION: 1. Persistent versus recurrent right lung base infiltrate. 2. Prominent interstitial lung markings. Underlying interstitial lung disease is a possibility. 3. Small right pleural effusion. EXAM: CHEST CTA WITH CONTRAST (PULMONARY ARTERY) HISTORY: Chest pain and shortness of breath. TECHNIQUE: CTA acquisition of the chest from the thoracic inlet to the upper abdomen following IV contrast administration timed to filling of the pulmonary artery. 3D/MIP/VR images were utilized. CT Dose Reduction Techniques Employed: Yes. IV Contrast: Administered. COMPARISON: None. FINDINGS: Pulmonary Embolism: Diagnostic quality: Adequate. Central (Main/Lobar/Interlobar): No embolus. Peripheral (Segmental/Subsegmental): No embolus. Right ventricle/Left ventricle ratio: 1.0. Lines, Tubes, Devices: None. Lung Parenchyma and Airways: Central airways are patent without endobronchial lesion. Diffuse emphysematous changes with coarse interstitial markings. Right lower lobe subsegmental atelectasis. Pleural Space: Mild right pleural effusion. Trace left pleural effusion. Mediastinum and Karine: Thyroid gland is normal. Multiple prominent mediastinal and hilar nodes, some of which measure over 1 cm in short axis and may be pathologic. Heart and Pericardium: There is no pericardial effusion or thickening. The heart is not enlarged. Vessels: The thoracic aorta is of normal caliber. Bones: There is no fracture or lytic lesion. Soft Tissues: Chest wall soft tissues are unremarkable. Upper Abdomen: There is reflux of contrast into the inferior vena cava and hepatic veins suggesting right heart failure. Left renal cortical cysts. Bilateral extrarenal pelvis. IMPRESSION: 1. Normal CT pulmonary angiogram with no evidence of pulmonary artery embolism. 2. Significant diffuse emphysematous changes. Small right effusion and subsegmental atelectasis in the right lower lobe. Trace left pleural effusion. 3. Mediastinal and hilar adenopathy. 4. Moderate reflux of contrast into the inferior vena cava and hepatic veins may be due to right heart failure. Review Statement Review Statement: I have independently reviewed and interpreted the labs/EKGs/imaging that were ordered by the ER provider. I have reviewed all outside records that are available currently in our EMR including imaging/notes/labs from previous visits. Plan Plan: 1. A fib rvr - Due to non compliance with medication. Wean off cardizem drip, start cardizem 60 mg PO q6hrs and stop drip in 1 hour. Will add metoprolol back on if needed but will hold this morning as BP has been low. Eliquis restarted as well. Echo ordered. Replace K+. Mag normal. 2. Acute hypoxic respiratory failure - Concern this may actually be chronic with her COPD, but just not captured due to her noncompliance. CTA negative. Will try to qualify for home O2. 3. COPD, not in exacerbation - Cont home meds, xopenex prn 4. Suicidal ideations without a plan - Suicidal precautions. Mental health evaluating patient now, will follow their recs. 5. Psychiatric disorders - Pt has been noncompliant with medications, she will need outpt f/u. DVT Prophylaxis: Eliquis Time Spent: Greater than 80 minutes spent with patient, 50% of the time spent with this patient was devoted to counseling and coordination of care. [facility] Plannin minutes spent discussing advance care planning. Admit to: Obs Discussed Plan of Care with Dr. Erika Obrien. Dispo: Possible dc tomorrow if medically stable and cleared by psych Medications Medication Orders: Medications Ordered Category Date Time Status 0.9 % Sodium Chloride [Saline Flush] Meds 04/27/24 21:00 Active 1 syr IVF Q8HR Acetaminophen [Tylenol] Meds 04/27/24 16:46 Active 650 mg PO Q4H PRN Apixaban [Eliquis] Meds 04/27/24 16:55 Active 5 mg PO BID Carbidopa/Levodopa [Sinemet 25-100] Meds 04/27/24 21:00 Active 1 tab PO BEDTIME Diltiazem HCl [Cardizem] Meds 04/28/24 09:00 Active 60 mg PO Q6HR Diltiazem HCl [Cardizem] 125 mg Meds 04/27/24 14:30 Active 0.9 % Sodium Chloride [Sodium Chloride 100Ml] 100 ml IV TITRATION Hydroxyzine Pamoate [Vistaril] Meds 04/28/24 08:51 Active 25 mg PO QID PRN Levalbuterol HCl [Xopenex 1.25 mg] Meds 04/28/24 08:28 Active 1.25 mg NEB RTQ6H PRN Metoprolol Tartrate [Lopressor] Meds 04/27/24 21:00 Active 12.5 mg PO BID Tiotropium [place] [Spiriva] Meds 04/28/24 09:00 Active 1 cap IH DAILY Trazodone HCl [Desyrel] Meds 04/27/24 21:00 Active 50 mg PO BEDTIME
--- NOTE | 2024-04-28 12:13 | ECHO2D ---
Date of Exam: 04/28/2024 Ordering Physician: HOSPITALIST--CONNER GUIDO Room #: SCU2 Reason for Echo: ATRIAL FIBRILLATION, CONGESTIVE HEART FAILURE M-Mode Normal Adult Results LV Dimensions Normal Adult Results AoV Opening excursions >1.6 >1.6 LVEDD-base- 3.5-5.8 3.8 Ao root dimensions 2.0-3.7 3.3 LVESD-base- 3.1-4.6 L. Atrium dimensions 1.9-3.8 5.2 Post. Wall thickness 0.8-1.1 1.1 IV septum (thickness) 0.7-1.2 1.2 Post. Wall excursion 0.72-1.3 NORMAL Septal motion -- Systolic motion R. Ventricular cavity 1.5-2.0 3.0 LVEF 60% 50% Paradoxical septal wall motion MAYBE 2-D : ENLARGED LEFT ATRIAL, RIGHT ATRIAL AND RIGHT VENTRICLE CAVITIES, CALCIFIC MITRAL VALVE ANNULUS, NO EFFUSION, NO THROMBUS, AKINETIC SEPTAL WALL COLOR FLOW: MODERATE TO SEVERE TRICUSPID REGURGITATION, MODERATE MITRAL REGURGITATION M-MODE: MV: CALCIFIC MITRAL VALVE ANNULUS AV: NORMAL TV: NORMAL PV: CHAMBER SIZE: ENLARGED RIGHT ATRIAL, LEFT ATRIAL AND RIGHT VENTRICLE CAVITIES WALL MOTION: AKINETIC SEPTAL WALL PERICARDIUM: NORMAL INTERPRETATION: 1. BORDERLINE LEFT VENTRICLE HYPERTROPHY 2. ENLARGED LEFT ATRIAL, RIGHT ATRIAL AND RIGHT VENTRICLE CAVITIES 3. CALCIFIC MITRAL VALVE ANNULUS 4. AKINETIC SEPTUM EJECTION FRACTION 50% 5. MODERATE TO SEVERE TRICUSPID REGURGITATION, MODERATE MITRAL REGURGITATION MTDD
[2024-04-28] MEDS: ATIVAN IVP ONE (13:10)
[2024-04-28] MEDS ORDERED: ATIVAN IVP PRN (20:46)
[2024-04-28] MEDS: LASIX IVP ONE (21:29)
[2024-04-29 05:53] LABS: BASOPHILS % (AUTO) 0.3 % (0.0-3.0); EOSINOPHILS # (AUTO) 0.3 K/ul (0.0-0.7); EOSINOPHILS % (AUTO) 3.7 % (0.0-7.0); HEMATOCRIT 30.9 % (37.0-47.0); HEMOGLOBIN 9.6 g/dl (12.0-16.0); IMMATURE GRANULOCYTE % (AUTO) 0.5 % (0.0-5.0); LYMPHOCYTES # (AUTO) 1.8 K/uL (0.60-3.4); LYMPHOCYTES % (AUTO) 24.3 (10.0-50.0); MEAN CORPUSCULAR HEMOGLOBIN 28.5 pg (27.0-31.0); MEAN CORPUSCULAR HGB CONC 31.1 (31.8-35.4); MEAN CORPUSCULAR VOLUME 91.7 fl (81.0-99.0); MONOCYTES # (AUTO) 0.7 K/uL (0.4-2.0); MONOCYTES % (AUTO) 9.8 (0-10); NEUTROPHILS # (AUTO) 4.6 K/ul (2.0-6.9); NEUTROPHILS % (AUTO) 61.4 % (42.2-75.2); PLATELET COUNT 355 10^3/uL (140-440); RDW COEFFICIENT OF VARIATION 17.3 % (11.6-14.8); RED BLOOD COUNT 3.37 10^6/ul (4.20-5.40); WHITE BLOOD COUNT 7.48 K/ul (4.6-10.2)
[2024-04-29 06:08] LABS: ALANINE AMINOTRANSFERASE 10.4 U/L (0-35); ALBUMIN 3.45 g/dL (3.5-5.0); ALKALINE PHOSPHATASE 62.1 U/L (53-141); BILIRUBIN,TOTAL 0.69 mg/dL (0.2-1.3); BLOOD UREA NITROGEN 14.6 mg/dL (7-17); CALCIUM 8.64 mg/dL (8.4-10.2); CARBON DIOXIDE 26.5 mmol/L (22-30.0); CHLORIDE 105.4 mmol/L (98-107); CREATININE 1.1 mg/dL (0.60-1.30); GLUCOSE 108.3 mg/dL (74-106); POTASSIUM 4.17 mmol/L (3.5-5.1); SODIUM 136.3 mmol/L (134.5-145); TOTAL PROTEIN 6.41 g/dL (6.3-8.2)
[2024-04-29] MEDS: ATIVAN PO ONE (09:33)
[2024-04-29] MEDS: CARDIZEM CD PO SCH (09:33)
[2024-04-29] MEDS: BENADRYL PO ONE (11:10)
[2024-04-29] MEDS: LASIX IVP ONE (11:29)
[2024-04-29] MEDS: LASIX TAB PO ONE (12:24)
--- NOTE | 2024-04-29 12:57 | DCSUM ---
Admission Date Admission Date: 04/27/24 Discharge Date Discharge Date: 04/29/24 Admission Diagnosis Admission Diagnosis: 1. A fib rvr 2. Acute hypoxic respiratory failure Discharge Diagnosis Discharge Diagnosis: 1. A fib rvr, resolved 2. Acute hypoxic respiratory failure 3. COPD, not in exacerbation 4. Suicidal ideations without a plan, resolved 5. Psychiatric disorders Hospital Provider Hospital Provider: JARROD GRAYSON PA-C, [facility] Primary Care Physician Primary Care Physician: DEBBIE EDWARDS Summary of History and Physical Summary of History and Physical: Patient is a 83 year old female from home with pmhx of A-fib, heart failure, COPD, and multiple psychiatric disorders such as bipolar disorder, nonepileptic seizure disorder, anxiety, histrionic behavior who presents to the ER with worsening shortness of breath and elevated heart rate. Patient is historically noncompliant with her medications and she states that she has not taken them for likely weeks at this point. She states that she just does not think she needs them. She was found to have a heart rate in the 170s to 180s in the ER. She was given IV metoprolol and Cardizem with some improvement. She was ultimately put on a Cardizem drip. She also was given 1 dose of digoxin IV. Otherwise labs rather unremarkable other than an elevated D-dimer. CTA showed no PE or pneumonia but does show COPD. She was requiring oxygen. Patient admitted to [facility]. Patient was maxed out on Cardizem drip but was able to be weaned down through the night. Her blood pressure was somewhat low this morning and therefore Cardizem drip was weaned to 2.5 mg. Heart rate has been more controlled consistently under 110. She is still requiring oxygen, suspect that this could be her baseline with her COPD she just has not been compliant. Patient did mention to nursing staff last night that she does not want to be alive any longer and wish God would just kill her. She was placed on suicide precautions. Patient does have a significant history of suicidal ideations and attempts. She was hospitalized for an attempt of cutting her jugular in just the last few months. When this provider asks her this morning if she is suicidal she says no, "I am just so tired". She states that she does not have a plan. She lives at home alone and her daughter checks on her often. She is not interested in shelter placement or anything like that even if it would offer her more socialization. Hospital Course Subjective: Patient was treated on the floor with cardizem drip. She was weaned by the morning on 04/28, HR better controlled but BP had dropped. She was transitioned to oral cardizem 60 mg q6hrs. On 04/29 she was transitioned to cardizem 240 mg. HR has been much better controlled and BP normal. She does have some episodes of tachycardia with exertion but it returns back to baseline. She was restarted on eliquis. She was given a couple doses of lasix IV as well, suspect she's having some output failure due to her uncontrolled a fib. Edema has improved. She has required 2-4L. This seems multifactoral due to fluid overload, a fib, COPD, and likely underlying pulmonary hypertension. Discussed several times the importance of medication compliance. I encouraged staying another day for some more lasix but the patient would like to go home, states she will start taking her lasix at home this time. Daughter states the eliquis costs too much, so she was switched to xarelto through the 340B program at [facility], this may help with compliance anyway with once daily dosing. Mental health evaluated patient and cleared her from a psychiatric standpoint. They recommend daughter stay with her for next couple days, which daughter is agreeable to. Pt denies SI or any plan to harm herself today and yesterday. Patient and daughter are entertaining the idea of palliative care. Dr. Zoe Obrien discussed with daughter patient's echo looking poor. They will discuss further and bring up with pcp if they'd like to pursue it. Patient set up with home health and home O2. Appearance: Pleasant, No Apparent Distress and Alert HEENT: MMM CVS: No Murmur Abdomen: Soft, Non-Tender and No Distention Respiratory: No Accessory Muscle Use Extremities: Other (+1+ pitting edema tita lower ext. ) Vital Signs: Most Recent Vital Signs Temperature 97.8 F 04/29/24 10:00 Temperature Source Temporal Artery Scan 04/29/24 10:00 Temperature Source Infrared 04/27/24 13:05 Pulse Rate 103 H 04/29/24 10:00 Respiratory Rate 16 04/29/24 10:00 Blood Pressure 137/82 04/29/24 10:00 Blood Pressure Mean 100 04/29/24 10:00 Blood Pressure Left Arm 131/78 04/27/24 18:04 Blood Pressure Location Left Arm 04/29/24 10:00 Blood Pressure Position Sitting 04/29/24 10:00 O2 Sat by Pulse Oximetry 93 L 04/29/24 10:00 Oxygen Delivery Method Nasal Cannula 04/29/24 10:00 Oxygen Flow Rate 4 04/29/24 10:00 Height 163 ft 04/27/24 18:04 Weight 163 lb 2 oz 04/29/24 05:46 Telemetry Type Bedside Monitor 04/29/24 07:00 Telemetry Monitoring Continues 04/29/24 07:00 Irregular Telemetry Rate (Approximate) 80-90 BPM 04/29/24 07:00 Telemetry Heart Rate 85 04/29/24 07:00 Telemetry SPO2 85 L 04/29/24 07:00 EKG QRS Interval 0.10 04/29/24 07:00 Telemetry Strip Reading Afib 04/29/24 07:00 Imaging: EXAM: CHEST ONE-VIEW HISTORY: Cough COMPARISON: AP chest from 02/16/2024 FINDINGS: The cardiomediastinal silhouette is stable but prominent. The pulmonary vasculature is normal. A small right pleural effusion is suggested with subjacent opacities. There is prominence of the interstitial lung markings diffusely. No pneumothoraces or pleural effusions. A right reverse total shoulder arthroplasty is noted. IMPRESSION: 1. Persistent versus recurrent right lung base infiltrate. 2. Prominent interstitial lung markings. Underlying interstitial lung disease is a possibility. 3. Small right pleural effusion. EXAM: CHEST CTA WITH CONTRAST (PULMONARY ARTERY) HISTORY: Chest pain and shortness of breath. TECHNIQUE: CTA acquisition of the chest from the thoracic inlet to the upper abdomen following IV contrast administration timed to filling of the pulmonary artery. 3D/MIP/VR images were utilized. CT Dose Reduction Techniques Employed: Yes. IV Contrast: Administered. COMPARISON: None. FINDINGS: Pulmonary Embolism: Diagnostic quality: Adequate. Central (Main/Lobar/Interlobar): No embolus. Peripheral (Segmental/Subsegmental): No embolus. Right ventricle/Left ventricle ratio: 1.0. Lines, Tubes, Devices: None. Lung Parenchyma and Airways: Central airways are patent without endobronchial lesion. Diffuse emphysematous changes with coarse interstitial markings. Right lower lobe subsegmental atelectasis. Pleural Space: Mild right pleural effusion. Trace left pleural effusion. Mediastinum and Karine: Thyroid gland is normal. Multiple prominent mediastinal and hilar nodes, some of which measure over 1 cm in short axis and may be pathologic. Heart and Pericardium: There is no pericardial effusion or thickening. The heart is not enlarged. Vessels: The thoracic aorta is of normal caliber. Bones: There is no fracture or lytic lesion. Soft Tissues: Chest wall soft tissues are unremarkable. Upper Abdomen: There is reflux of contrast into the inferior vena cava and hepatic veins suggesting right heart failure. Left renal cortical cysts. Bilateral extrarenal pelvis. IMPRESSION: 1. Normal CT pulmonary angiogram with no evidence of pulmonary artery embolism. 2. Significant diffuse emphysematous changes. Small right effusion and subsegmental atelectasis in the right lower lobe. Trace left pleural effusion. 3. Mediastinal and hilar adenopathy. 4. Moderate reflux of contrast into the inferior vena cava and hepatic veins may be due to right heart failure. Date of Exam: 04/28/2024Ordering Physician: HOSPITALIST--CONNER GUIDO Room #: SCU2 Reason for Echo: ATRIAL FIBRILLATION, CONGESTIVE HEART FAILURE M-Mode Normal Adult Results LV Dimensions Normal Adult Results AoV Opening excursions >1.6 >1.6 LVEDD-base- 3.5-5.8 3.8 Ao root dimensions 2.0-3.7 3.3 LVESD-base- 3.1-4.6 L. Atrium dimensions 1.9-3.8 5.2 Post. Wall thickness 0.8-1.1 1.1 IV septum (thickness) 0.7-1.2 1.2 Post. Wall excursion 0.72-1.3 NORMAL Septal motion -- Systolic motion R. Ventricular cavity 1.5-2.0 3.0 LVEF 60% 50% Paradoxical septal wall motion MAYBE 2-D : ENLARGED LEFT ATRIAL, RIGHT ATRIAL AND RIGHT VENTRICLE CAVITIES, CALCIFIC MITRAL VALVE ANNULUS, NO EFFUSION, NO THROMBUS, AKINETIC SEPTAL WALL COLOR FLOW: MODERATE TO SEVERE TRICUSPID REGURGITATION, MODERATE MITRAL REGURGITATION M-MODE: MV: CALCIFIC MITRAL VALVE ANNULUS AV: NORMAL TV: NORMAL PV: CHAMBER SIZE: ENLARGED RIGHT ATRIAL, LEFT ATRIAL AND RIGHT VENTRICLE CAVITIES WALL MOTION: AKINETIC SEPTAL WALL PERICARDIUM: NORMAL INTERPRETATION: 1. BORDERLINE LEFT VENTRICLE HYPERTROPHY 2. ENLARGED LEFT ATRIAL, RIGHT ATRIAL AND RIGHT VENTRICLE CAVITIES 3. CALCIFIC MITRAL VALVE ANNULUS 4. AKINETIC SEPTUM EJECTION FRACTION 50% 5. MODERATE TO SEVERE TRICUSPID REGURGITATION, MODERATE MITRAL REGURGITATION Lab Results Last 24 Hours: 04/29/24 05:38 WBC 7.48 RBC 3.37 L Hgb 9.6 L Hct 30.9 L MCV 91.7 MCH 28.5 MCHC 31.1 L RDW Coeff of Magda 17.3 H Plt Count 355 Immature Gran % (Auto) 0.5 Neut % (Auto) 61.4 Lymph % (Auto) 24.3 [place] % (Auto) 9.8 Eos % (Auto) 3.7 Baso % (Auto) 0.3 Neut # (Auto) 4.6 Lymph # (Auto) 1.8 [place] # (Auto) 0.7 Eos # (Auto) 0.3 Baso # (Auto) 0.0 Immature Gran # (Auto) 0.0 Sodium 136.3 Potassium 4.17 Chloride 105.4 Carbon Dioxide 26.5 Anion Gap 8.57 BUN 14.6 Creatinine 1.10 Estimated GFR (MDRD) 48.00 BUN/Creatinine Ratio 13.27 Glucose 108.3 H Calcium 8.64 Total Bilirubin 0.69 AST 42.0 H ALT 10.4 Alkaline Phosphatase 62.1 Total Protein 6.41 Albumin 3.45 L Globulin 2.96 Albumin/Globulin Ratio 1.16 Discharge Instructions Discharge Planning: Discharge Planning > [address] Erika Obrien. Discharge Medications: Medications at Discharge (Home Meds & RX) Discharge Plan Discharge Discharge Orders: Discharge Patient (ONCE); Ordered 04/29/24 Ordered By: JARROD GRAYSON Activity Restrictions/Additional Instructions: DISCHARGE TO HOME HOME HEALTH ORDERED THROUGH [facility], THEY WILL BE IN CONTACT WITH YOU AND SEE YOU THE FIRST PART OF NEXT WEEK. [phone] [facility] SENT TO I FOR THEIR DISCOUNT PROGRAM CARDIZEM EXTENDED RELEASE SENT TO [facility] PLEASE TAKE YOUR MEDICATIONS PRESCRIBED NEW BEGINNINGS REFERRAL PLACED, PLEASE FOLLOW UP WITH THEM. OXYGEN ORDERED THROUGH [employer]. NEW BEGINNINGS APPOINTMENT SET FOR April AT 11:30AM. THEIR NUMBER IS [phone]. Instructions: A-fib (Atrial Fibrillation) (GEN), COPD (Chronic Obstructive Pulmonary Disease) (GEN), Suicide Prevention (GEN) Care Plan Goals: Problem: Impaired Respiratory Status Goal: Exhibit optimal respiratory function Instructions: Activities as tolerated Apply oxygen as ordered Elevate head of bed Notify MD of increased congestion Problem: Risk for suicide Goal #1: Exhibit reduced risk for suicide Instructions: Seek medical assistance if you feel unsafe Goal #2: Remain safe and free from harm Instructions: Discuss suicide intent/risk with family, friends, or counselor Remove objects that could be used for harm Patient Disposition: HOME WITH FAMILY CARE Prescriptions: New Xarelto 20 mg tablet 20 mg PO DAILY Qty: 30 0RF Rx Instructions: must administer with evening meal Continued potassium chloride 20 mEq tablet,ER particles/crystals 20 meq PO DAILY Patient Comments: TAKE 1 TABLET BY MOUTH DAILY carbidopa-levodopa 10-100 mg tablet 1 tab PO BEDTIME Patient Comments: TAKE 1 TABLET BY MOUTH AT BEDTIME furosemide 20 mg tablet 20 mg PO BID Patient Comments: TAKE 1 TABLET BY MOUTH TWICE DAILY Spiriva Respimat 2.5 mcg/actuation mist 2 puff inhalation DAILY Qty: 4 0RF gabapentin 300 mg capsule 300 mg PO TID Patient Comments: TAKE ONE CAPSULE BY MOUTH THREE TIMES DAILY diltiazem HCl 240 mg capsule,extended release 24hr 240 mg PO DAILY Qty: 30 0RF Rx Instructions: see pcp for refills Discontinued trazodone 50 mg tablet 50 mg PO BEDTIME Patient Comments: TAKE 1 TABLET BY MOUTH AT BEDTIME NEEDED FOR SLEEP OR INSOMNIA methocarbamol 750 mg tablet 750 mg PO DAILY PRN (Reason: muscle spasms) Eliquis 5 mg tablet 5 mg PO BID Hold Instructions: Patient Refused Patient Comments: TAKE 1 TABLET BY MOUTH TWICE DAILY aripiprazole [Abilify] 5 mg tablet 5 mg PO BEDTIME dexamethasone 6 mg tablet 6 mg PO DAILY Qty: 8 0RF Rx Instructions: START 02/19/24 metoprolol succinate 25 mg tablet extended release 24 hr 25 mg PO BID Did you review [place] [employer] for ALL controlled substances?: Not Applicable Discussed opioids are addictive and Narcan is available by prescription or from pharmacy.: No Condition: Stable Referrals: REJI OBRIEN MD [STAFF PHYSICIAN] - 05/05/24 8:40 am
[2024-04-29 15:11] VITALS: BP 140/79; PULSE 95; RESP 20; TEMP 98.7
== END 2024-04-29 16:15 | disposition home health service (06) | DRG 308 ==
LOC: SCU 13:02 → ED 13:02 → SCU 18:00
PROVIDERS: ADMIT Hospitalist; ATTEND Physician Assistant